=== PATIENT | male | born 1975 | race Caucasian/White ===

== ENCOUNTER 2017-05-23 08:51 | Emergency (ER) | payer OTHER, SELFPAY ==
[2017-05-23 08:53] VITALS: BP 142/106; PULSE 69; RESP 16; TEMP 37.1; O2SAT 97; BMI 28.0
--- NOTE | 2017-05-23 09:05 | CT_ITS ---
STUDY: CT FACIAL BONES WITH CONTRAST REASON FOR EXAM: Male, 41 years old. Left eye swelling RADIATION DOSAGE (If Supplied By Facility): CTDIvol = ( 29.38 ) mGy, DLP = ( 569.49 ) mGycm TECHNIQUE: The patient was scanned in a multi detector CT scanner. Transaxial imaging was performed following the intravenous administration of 100 ml of Isovue 300 contrast material. Sagittal and coronal images were reconstructed. Individualized dose optimization techniques were used for this CT. COMPARISON: Facial bone CT dated October 20, 2014 FINDINGS: There is mild soft tissue swelling around the left orbit and in the left facial region. Normal orbital walters and orbital contents. Normal nasal bones and anterior nasal spine. There is minimal cortical disruption in the anterior left maxilla adjacent to a tooth root. There is no demonstrated fracture. There is minimal mucosal thickening in both maxillary sinuses. CT/Sinus/Facial Bone WITH Contras IMPRESSION: There is soft tissue swelling around the left orbit and in the left facial region consistent with cellulitis. There is no loculated fluid collection to suggest an abscess. There is minimal cortical disruption in the anterior left maxilla adjacent to the root of tooth 11. There is adjacent soft tissue swelling but no discrete abscess. Electronically Signed: Ingris Hoskins MD at 10:02 EST Tel Direct: [phone], Service support ,
--- NOTE | 2017-05-23 09:11 | ED.DCSUM_ITS ---
- ER Visit Summary Date of Service: 05/23/17 Chief Complaint: Facial swelling History of Present Illness: The patient is a 41 M who states that last night his left maxillary region of his face began to swell and hurt. Is significantly worse this morning and now has faint erythema. He has a known focal decay in the left upper premolar and wonders if this is from that. He does not note any specific severe pain of the tooth. No reported fevers. Previous medical history includes an idiopathic cardiomyopathy with ejection fraction now about 55%. Physical Examination: Afebrile vital signs are stable Gen: Well-nourished well-developed Head: Normocephalic atraumatic Eyes: Perrl EOMI ENT: TMs clear no rhinorrhea moist mucous membranes left maxillary facial swelling with faint erythema. There is no trismus. There is no focal gum swelling. There is focal decay of a premolar. Neck: Supple no lymphadenopathy no JVD nontender CVS: Regular rate rhythm no murmurs normal S1-S2 Respiratory: No distress clear to auscultation bilaterally chest nontender Abdomen: Soft nontender nondistended normal bowel sounds no masses Back: Nontender Extremity: Nontender no edema Skin: Normal color no rash Neuro: alert orientated ?3 CN II-XII intact normal strength sensation reflexes gait cerebellar Psych: Normal affect normal mood Test Results: CT demonstrates focal dental caries with minimal cortical disruption as well as left facial cellulitis see radiology read for further details Emergency Department Course and Treatment: Received a dose of IV clindamycin. He will be discharged home with a prescription for clindamycin as well as a few Reddick. At this time I believe the facial cellulitis is most likely due to the dental caries. I have asked that he follow-up with dentistry as soon as possible return if worsening. Impression: 1. Dental caries 2. Left facial cellulitis This note was generated with [employer] dictation software. It may contain incorrect words, spelling, and punctuation that were not noted in review of the chart prior to signing ED Disposition - Plan for ED Patient: Disposition: Home or Assisted Living Chief Complaint: Dental Instructions: ED Cavity Dental, ED Cellulitis Facial Prescriptions: Hydrocodone Bitart/Apap 5-325 [[place]dick 5/325] 1 - 2 tab PO Q4H PRN PRN 3 Days #12 tab PRN Reason: Persistent Bp Elevations Clindamycin HCl [Cleocin] 300 mg PO Q6H #40 cap Referrals: Eddie Combs MD [Primary Care Provider] -
[2017-05-23 11:05] VITALS: BP 118/72; PULSE 58; RESP 18; O2SAT 98
== END 2017-05-23 11:06 | disposition home or self-care (01) ==
PROVIDERS: Emergency Provider Emergency Medicine; Family Provider Family Medicine; PCP Family Medicine
DX: L03.211 Cellulitis of face (principal); K02.9 Dental caries, unspecified; I10 Essential (primary) hypertension; I42.9 Cardiomyopathy, unspecified
CPT/HCPCS: 70487; 96365; 99283; J7050; Q9967; A4216

== ENCOUNTER 2017-10-20 14:54 | Emergency (ER) | payer OTHER, SELFPAY ==
[2017-10-20 14:55] VITALS: BP 147/88; PULSE 87; RESP 16; TEMP 37.1; O2SAT 98; BMI 27.8
--- NOTE | 2017-10-20 15:46 | ED.VISSUMM ---
- ER Visit Summary Date of Service: 10/20/17 Chief Complaint: [Injury right knee] History of Present Illness: The patient is a 41 M [presents the emergency department with complaint of injury to his right knee that occurred yesterday evening. Patient states that he tripped over a skid and his foot went in between the boards causing him to fall onto his hands and knees. Patient states that his right knee twisted. Patient having a hard time bearing weight at times and feels like the knee wants to go backwards. Patient has had prior surgical repair of this knee in 1996 where he believes he had a ACL reconstruction.] Physical Examination: [HEENT-PERRLA, EOMI. Cranial nerves II through XII grossly intact. TMs clear. Mucous membranes moist. No adenopathy. Cardiovascular-regular rate and rhythm without murmur or ectopy Lungs-clear to auscultation, chest wall stable without crepitus or subcu emphysema Abdomen-normoactive bowel sounds, soft, nontender, no rebound or rigidity, no peritoneal signs. Extremities-intact ?4, normal range of motion, normal pulses. Right knee-no effusion. No soft tissue swelling or ecchymosis noted. Patient has some pain at end of flexion of the knee. Anterior posterior drawer tests were negative. No laxity noted with varus and valgus stress. Patient has some mild diffuse tenderness about the medial lateral joint lines. Neurovascularly intact distally. Test Results: [X-rays of the right knee were obtained.] X-rays were read as postsurgical changes no fractures or anything acute. Emergency Department Course and Treatment: [Patient will be given crutches and knee immobilizer] Treatment Plan: [Patient given a prescription for [place] and referred to Dr. Anuj Gomez for follow-up] Disposition: [Discharged home in stable condition] Impression: [Right knee sprain-possible internal derangement] This note was generated with [employer] dictation software. It may contain incorrect words, spelling, and punctuation that were not noted in review of the chart prior to signing ED Disposition - Plan for ED Patient: Chief Complaint: Lower Extremity Injury Referrals: Eddie Combs MD [Primary Care Provider] -
--- NOTE | 2017-10-20 15:59 | RAD_ITS ---
STUDY: X-RAY - RIGHT KNEE REASON FOR EXAM: Right knee pain after a fall. TECHNIQUE: 4 view(s) of the knee. COMPARISON: None. FINDINGS: There are postoperative changes of the distal femur and proximal tibia from anterior cruciate ligament reconstruction. Normal proximal tibiofibular articulation. Normal medial femorotibial compartment. Normal lateral femorotibial compartment. Normal patellofemoral articulation. There is a small enthesophyte at the superior pole of the patella. RAD/Knee 4 or More Views IMPRESSION: Postoperative changes of the right knee without demonstrated fracture. Electronically Signed: Jasper Harrell MD at 16:22 EDT Tel , Service support ,
--- NOTE | 2017-10-20 16:49 | DCINST.ED_ITS ---
ED Disposition - Plan for ED Patient: Chief Complaint: Lower Extremity Injury Instructions: ED Meniscal Injury Knee Poss, ED Sprain Knee Prescriptions: Hydrocodone/Acetaminophen [[place] 5-325 Tablet] 1 - 2 ea PO 4X/DAY PRN PRN 5 Days #20 tab PRN Reason: Pain Referrals: Eddie Combs MD [Primary Care Provider] - Anuj Gomez DO [STAFF PHYSICIAN] - 3-5 Days
[2017-10-20 17:16] VITALS: PULSE 92; RESP 16; O2SAT 98
== END 2017-10-20 17:16 | disposition home or self-care (01) ==
PROVIDERS: Emergency Provider Emergency Medicine; Family Provider Family Medicine; PCP Family Medicine
DX: S83.90XA Sprain of unspecified site of unspecified knee, initial encounter (principal); W18.09XA Striking against other object with subsequent fall, initial encounter; Y93.9 Activity, unspecified; Y92.9 Unspecified place or not applicable; Y99.9 Unspecified external cause status; I42.9 Cardiomyopathy, unspecified; I48.91 Unspecified atrial fibrillation
CPT/HCPCS: 73564; 99284

== ENCOUNTER 2017-10-23 22:17 | Emergency (ER) | payer OTHER, SELFPAY ==
[2017-10-23 22:18] VITALS: BP 115/94; PULSE 160; PULSE 170; RESP 18; TEMP 36.7; O2SAT 96; O2SAT 98; BMI 28.9
--- NOTE | 2017-10-23 22:21 | EKG12_ITS ---
Test Reason : CP Blood Pressure : / mmHG Vent. Rate : 144 BPM Atrial Rate : 127 BPM P-R Int : 000 ms QRS Dur : 090 ms QT Int : 300 ms P-R-T Axes : 000 069 -39 degrees QTc Int : 464 ms Atrial fibrillation with premature ventricular or aberrantly conducted complexes ST & T wave abnormality, consider inferior ischemia Abnormal ECG Confirmed by MARCO COVARRUBIAS, KEVON ([id number]), tape editor PATI LEON ([id number]) on 10/28/2017 2:53:27 PM Referred By: KAMAR Confirmed By:KEVON LARA MD
--- NOTE | 2017-10-23 22:21 | RAD_ITS ---
STUDY: X-RAY CHEST REASON FOR EXAM: Male, 41 years old. Chest pain. TECHNIQUE: Single AP portable upright view of the chest. COMPARISON: PA and lateral chest x-ray January 31, 2017. FINDINGS: The lungs are under expanded, and there is mild basilar hypoventilation. There is no demonstrated pleural abnormality. Normal size heart. Normal mediastinum and jr. Normal visualized pulmonary arteries. Normal visualized aortic arch and descending thoracic aorta. Normal visualized thoracic spine. Normal visualized ribs, clavicles, and shoulders. There is no demonstrated abnormality of the visualized soft tissue structures of the upper abdomen. RAD/Chest 1 View (Portable) IMPRESSION: Poor inspiratory effort. No acute cardiopulmonary disease. Electronically Signed: Bijan Winkler MD at 22:35 EDT , Service support ,
--- NOTE | 2017-10-23 22:23 | ED.DCSUM_ITS ---
- ER Visit Summary Date of Service: 10/23/17 Chief Complaint: Elevated heart rate, left scapular pain History of Present Illness: The patient is a 41 M who presents with left scapular pain and elevated heart rate. Started today. He describes sharp pain in his left scapular area that radiated to the left arm. His who is a nurse checked his heart rate and it was above 120. Patient has a history of A. fib with RVR. He takes metoprolol 50 mg daily and lisinopril 5 mg daily. He does have shortness of breath with this. He has a history of idiopathic cardiomyopathy. His latest ejection fraction was about 50%. 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 Heart rate between 160 and 180. HEENT exam unremarkable. Heart is irregularly irregular and tachycardic. Lungs are clear to auscultation bilaterally. Abdomen soft and nontender. He has peripheral pulses that are equal. His neurologic exam is normal. Test Results: EKG A. fib with a rate of 144. Labs are unremarkable except for hemoglobin of 18 Emergency Department Course and Treatment: Patient was given a dose of Cardizem and his heart rate came down between 90 and 100. He did bump up to 120. I discussed this with Dr. Jarvis, promotional marketing agent for Dr. Leahy. He states the patient could either be discharged with Eliquis and metoprolol or the patient could be admitted. The patient will want to go home. I will start him on Eliquis 5 mg twice a day. I will also give him metoprolol 50 mg twice daily. I will give him a 25 mg dose here tonight per Dr. Jarvis. Patient will be discharged to follow-up with Dr. Leahy tomorrow Treatment Plan: [] Disposition: Discharge Impression: A. fib with RVR This note was generated with [employer] software. It may contain incorrect words, spelling, and punctuation that were not noted in review of the chart prior to signing ED Disposition - Plan for ED Patient: Chief Complaint: Chest Pain Referrals: Eddie Combs MD [Primary Care Provider] -
[2017-10-23] MEDS: dilTIAZem 25 MG/5 ML Vial IV BOLUS (22:27)
[2017-10-23] MEDS: Aspirin 81 MG TAB.CHEW 324 MG PO (22:27)
[2017-10-23 22:33] LABS: Absolute Lymphocyte Count 2.14 X10^3/ul (0.83-4.51); Absolute Neutrophil Count 7.6 X10^3/uL (2.0-7.7); Basophil# 0.01 X10^3/uL; Basophil% 0.1 % (0-1); Eosinophil# 0.04 X10^3/uL; Eosinophils% 0.4 % (0-5); Hematocrit 52.2 % (40-54); Lymphocyte # 2.14 X10^3/ul (4.0); Lymphocyte % 20.4 % (19-41); Mean Corp Hgb Conc 34.5 g/gl (32-36); Mean Corpuscular Hgb 30.6 pg (27.0-32.0); Mean Corpuscular Volume 88.8 fL (80-94); Monocyte% 6.7 % (0-10); Neutrophil # 7.58 X10^3/uL (2.7-7.7); Neutrophil % 72.3 % (47-70); Platelet Count 226 K/mm3 (150-450); RBC Distribution Width CV 13.8 % (11.6-14.6); RBC Distribution Width SD 44.9 fl (35.1-43.9); Red Blood Count 5.88 M/mm3 (4.6-6.2); White Blood Count 10.5 K/mm3 (4.4-11.0)
[2017-10-23 22:34] LABS: POSITIVE COUNT NO; POSITIVE DIFFERENTIAL NO; POSITIVE MORPHOLOGY NO
--- NOTE | 2017-10-23 22:34 | ED.RN ---
lab called with critical lab results. hgb 18.0. Dr. Zhang made aware. no new orders at this time
[2017-10-23 22:57] LABS: Anion Gap 8 (5-15); BUN 12 mg/dL (7-18); BUN/Creat Ratio 10.1 RATIO (10-20); Calcium,Total 8.8 mg/dL (8.5-10.1); Chloride 106 mmol/L (98-107); Creatinine, Serum 1.19 mg/dL (0.70-1.30); EST Glomerular Filtration Rate 71 mL/min (>60); Est Glom Filt Rate - Afr Amer 86 mL/min (>60); Estimated Creatinine Clearance 80.04 ml/min; Glucose 132 mg/dL (74-106); Sodium Level 140 mmol/L (136-145)
--- NOTE | 2017-10-23 23:13 | ED.DEP ---
ED Disposition - Plan for ED Patient: Disposition: Home or Assisted Living Chief Complaint: Chest Pain Diagnosis: Atrial fibrillation with RVR Instructions: ED Afib Prescriptions: Apixaban [Eliquis] 5 mg PO BID #60 tab Metoprolol Tartrate [Lopressor (beta misty)] 50 mg PO BID #60 tab Referrals: Eddie Combs MD [Primary Care Provider] - Additional Instructions: Your prescriptions were electronically transferred to [facility]
[2017-10-23] MEDS: Metoprolol Tartrate 5 MG/5 ML Vial IV (23:37)
[2017-10-23] MEDS: APIXABAN 5 MG TABLET PO (23:41)
[2017-10-23] MEDS: Metoprolol Tartrate 25 MG Tablet PO (23:41)
[2017-10-23 23:46] VITALS: BP 107/53; PULSE 83; RESP 28; O2SAT 97
== END 2017-10-23 23:57 | disposition home or self-care (01) ==
PROVIDERS: Emergency Provider Emergency Medicine; Family Provider Family Medicine; PCP Family Medicine
DX: I48.91 Unspecified atrial fibrillation (principal); M25.512 Pain in left shoulder; I42.9 Cardiomyopathy, unspecified; Z79.01 Long term (current) use of anticoagulants; Z79.899 Other long term (current) drug therapy
CPT/HCPCS: 71045; 80048; 84484; 85025; 93005; 96374; 96375; 99285; J7030

== ENCOUNTER 2017-10-24 12:37 | Inpatient (IN) | payer OTHER, SELFPAY ==
[2017-10-24] VITALS (21 sets, daily range): BP systolic 97–140; BP diastolic 65–89; PULSE 62–160; RESP 14–24; TEMP 36.6–36.8; O2SAT 92–96; BMI 28.8; BMI 27.7
--- NOTE | 2017-10-24 12:50 | RAD_ITS ---
STUDY: X-RAY CHEST REASON FOR EXAM: Male, 41 years old. Chest pain, arrhythmia. TECHNIQUE: Single AP portable upright view of the chest. COMPARISON: Portable AP upright chest x-ray October 23, 2017. FINDINGS: The lungs are clear, but under expanded with minor basilar crowding. There is no demonstrated pleural abnormality. Normal size heart. Normal mediastinum and jr. Normal visualized pulmonary arteries. There is stable minor atherosclerotic calcification of the aortic arch. Normal visualized thoracic spine. Normal visualized ribs, clavicles, and shoulders. There is no demonstrated abnormality of the visualized soft tissue structures of the upper abdomen. RAD/Chest 1 View (Portable) IMPRESSION: No acute cardiopulmonary disease. Electronically Signed: Bijan Winkler MD at 13:13 EDT , Service support ,
--- NOTE | 2017-10-24 12:50 | ED.VISSUMM ---
- ER Visit Summary Date of Service: 10/24/17 Chief Complaint: [Palpitations] History of Present Illness: The patient is a 41 M [who presents the emergency department with palpitations. It started last night. He was seen in the emergency department and diagnosed with A. fib he had a RVR at that time it was moderately controlled with a dose of Cardizem. Cardiology was consulted by phone and he was sent home on metoprolol and Eliquis. He followed up with cardiology today and was back in RVR with a heart rate of 160.] Physical Examination: [] WN WD NAD PERRL EOMI MMM NECK supple and nontender, no masses Irregularly irregular tachycardic no murmur rub or gallop, no peripheral edema, symmetric radial pulses CTAB no respiratory distress ABDOMEN is soft and nontender, normal bowel sounds, no distension, no rebound or guarding SKIN is warm and dry no rashes Alert and Oriented x3, CN II-XII in tact, no motor or sensory deficits, gait normal No lymphadenopathy Test Results: [] Emergency Department Course and Treatment: [Atrial fibrillation at a rate of 151, he was given 500 cc of fluid and 10 mg of Cardizem IV and rate was controlled to 9200. He was was placed on Cardizem drip at 5 mg/h. Rate was controlled he had no evidence of fluid overload troponin was normal TSH was normal. I spoke with Dr. Roberts as well as Dr. Álvarez 3 as this is a recurrent visit within 24 hours he will be admitted to the hospital. He was placed on Eliquis.] Treatment Plan: [] Disposition: [Admit] Impression: [A. fib with RVR] This note was generated with [employer] dictation software. It may contain incorrect words, spelling, and punctuation that were not noted in review of the chart prior to signing ED Disposition - Plan for ED Patient: Chief Complaint: Palpitations Referrals: Eddie Combs MD [Primary Care Provider] -
--- NOTE | 2017-10-24 12:56 | ED.DCSUM_ITS ---
- ER Visit Summary Date of Service: 10/24/17 Chief Complaint: [Palpitations] History of Present Illness: The patient is a 41 M [who presents the emergency department with palpitations. It started last night. He was seen in the emergency department and diagnosed with A. fib he had a RVR at that time it was moderately controlled with a dose of Cardizem. Cardiology was consulted by phone and he was sent home on metoprolol and Eliquis. He followed up with cardiology today and was back in RVR with a heart rate of 160.] Physical Examination: [] WN WD NAD PERRL EOMI MMM NECK supple and nontender, no masses Irregularly irregular tachycardic no murmur rub or gallop, no peripheral edema, symmetric radial pulses CTAB no respiratory distress ABDOMEN is soft and nontender, normal bowel sounds, no distension, no rebound or guarding SKIN is warm and dry no rashes Alert and Oriented x3, CN II-XII in tact, no motor or sensory deficits, gait normal No lymphadenopathy Test Results: [] Emergency Department Course and Treatment: [Atrial fibrillation at a rate of 151 , he was given 500 cc of fluid and 10 mg of Cardizem IV and rate was controlled to 9200. He was was placed on Cardizem drip at 5 mg/h. Rate was controlled he had no evidence of fluid overload troponin was normal TSH was normal. I spoke with Dr. Roberts as well as Dr. Álvarez 3 as this is a recurrent visit within 24 hours he will be admitted to the hospital. He was placed on Eliquis.] Treatment Plan: [] Disposition: [Admit] Impression: [A. fib with RVR] This note was generated with [employer] dictation software. It may contain incorrect words, spelling, and punctuation that were not noted in review of the chart prior to signing ED Disposition - Plan for ED Patient: Chief Complaint: Palpitations Referrals: Eddie Combs MD [Primary Care Provider] -
[2017-10-24] MEDS: dilTIAZem 25 MG/5 ML Vial 10 MG IV BOLUS (13:06)
[2017-10-24] MEDS: Aspirin 81 MG TAB.CHEW 324 MG PO (13:06)
[2017-10-24] MEDS: 0.9% Normal Saline 1,000 ML 250 ML IV (13:06)
[2017-10-24 13:17] LABS: Absolute Lymphocyte Count 2.11 X10^3/ul (0.83-4.51); Absolute Neutrophil Count 5.9 X10^3/uL (2.0-7.7); Basophil# 0.02 X10^3/uL; Basophil% 0.2 % (0-1); Eosinophil# 0.04 X10^3/uL; Eosinophils% 0.5 % (0-5); Hematocrit 49.4 % (40-54); Hemoglobin 16.6 g/dl (13.0-16.5); Lymphocyte # 2.11 X10^3/ul (4.0); Lymphocyte % 23.8 % (19-41); Mean Corp Hgb Conc 33.6 g/gl (32-36); Mean Corpuscular Hgb 30.1 pg (27.0-32.0); Mean Corpuscular Volume 89.5 fL (80-94); Mean Platelet Vol. 10.1 fl (6.2-12.0); Monocyte# 0.76 X10^3/uL; Monocyte% 8.6 % (0-10); Neutrophil # 5.93 X10^3/uL (2.7-7.7); Neutrophil % 66.8 % (47-70); POSITIVE COUNT NO; POSITIVE DIFFERENTIAL NO; POSITIVE MORPHOLOGY NO; Platelet Count 222 K/mm3 (150-450); RBC Distribution Width SD 45.5 fl (35.1-43.9); Red Blood Count 5.52 M/mm3 (4.6-6.2); White Blood Count 8.9 K/mm3 (4.4-11.0)
[2017-10-24 13:39] LABS: Anion Gap 5 (5-15); BUN 10 mg/dL (7-18); BUN/Creat Ratio 10.3 RATIO (10-20); Chloride 111 mmol/L (98-107); Creatinine, Serum 0.98 mg/dL (0.70-1.30); EST Glomerular Filtration Rate 89 mL/min (>60); Est Glom Filt Rate - Afr Amer 108 mL/min (>60); Estimated Creatinine Clearance 97.19 ml/min; Glucose 72 mg/dL (74-106); Potassium 3.9 mmol/L (3.5-5.1); Sodium Level 143 mmol/L (136-145); Thyroid Stim Hormone (TSH) 2.14 uIU/mL (0.358-3.74)
--- NOTE | 2017-10-24 14:06 | NURSING ---
DR LARA PAGED
--- NOTE | 2017-10-24 14:37 | NURSING ---
DR LARA PAGED
[2017-10-24] MEDS: APIXABAN 5 MG TABLET PO (14:47)
--- NOTE | 2017-10-24 15:27 | PCM.HP.STD ---
Problem List (1) Atrial fibrillation with RVR Status: Chronic History of Present Illness Date of Admission: 10/24/17 Chief Complaint: palpitations The patient is a 41 year old M who has been experiencing palpitations since . Patient also had associated diaphoresis and nausea with this. Patient presented to the emergency room and was found for ablation with RVR. Dr. Roberts, cardiology, was contacted and advised Eliquis and diltiazem. Patient being admitted for further rhythm control. Patient had similar symptoms when he has been in the past. [] Past Medical History Past Medical History (Chronic Problems): Chronic Problems (Last Reviewed 03/05/17 @ 16:35 by Joe Leahy MD) Paroxysmal atrial fibrillation (Chronic) Atrial fibrillation with RVR (Chronic) Cardiomyopathy (Chronic) Medical History: Medical History (Last Reviewed 10/24/17 @ 15:28 by Yasir Álvarez DO) Paroxysmal atrial fibrillation (Chronic) I48.0 Cardiomyopathy (Chronic) I42.9 Gall stones K80.20 Pulmonary embolism I26.99 Allergies No Known Allergies Allergy (Verified 10/20/17 14:55) Home Medications: Ambulatory Orders Medication Instructions Recorded lisinopril 5 mg tablet 5 mg PO DAILY #90 tab 03/05/17 Apixaban [Eliquis] 5 mg PO BID #60 tab 10/23/17 Hydrocodone/Acetaminophen 1 tab PO 4X/DAY PRN PRN 10/24/17 [Hydrocodon-Acetaminophen 5-325] Metoprolol Succinate 50 mg PO DAILY 10/24/17 Surgical History: Surgical History (Last Reviewed 10/24/17 @ 15:28 by Yasir Álvarez DO) Previous back surgery Z98.890 Surgical History: no surgical history Smoking Status: Never smoker Tobacco Use: Non-smoker Alcohol: None Drugs: None - *Family History Paternal Family History: Family History (Last Reviewed 10/24/17 @ 15:29 by Yasir Álvarez DO) Mother Heart disease History Items: - Review of Systems Constitutional: Reports: - - Diaphoresis. Denies: Chills, Fever, Weight Change Eyes: Denies: Blurred vision, Double vision HEENT: Denies: Head Aches, Sinus Congestion, Sinus Drainage Cardiovascular: Reports: - - Did have left scapular pain. Denies: Chest Pain, Edema Respiratory: Denies: Cough, Shortness of breath at rest, Sputum production Gastrointestinal: Denies: Abdominal Pain, Nausea, Vomiting Genitourinary: Denies: Dysuria Musculoskeletal: Reports: Joint Pain, Joint Tenderness, - - Right knee pain after sliding on a skid. Currently wearing a brace on his right knee. Skin: Denies: Dryness, Jaundice Neurological: Denies: Numbness, Tingling, Focal weakness Psychiatric: Denies: Anxiety, Depression Hematologic/ Lymphatic: Denies: Easy Bruising, Easy Bleeding, Hx of blood clot Comment: All review of systems are negative except as mentioned in the history of present illness and the other review of systems. VTE Information - Inpt Only VTE Present on Admission: No VTE Pharm Prophylaxis ordered?: Yes - Physical Exam General: Alert, Cooperative, No apparent distress HEENT: Atraumatic, Normocephalic Oral: Moist Mucosa, No Gingival or Mucosal Lesions/ Ulcerations Neck: No Nodes, Thyroid Normal Size and Texture Lungs: Clear to auscultation, Normal air movement, No rhonchi, No wheeze Cardiovascular: Normal S1, Normal S2, No murmurs, Irregular Rate, Tachycardic Abdomen: Bowel Sounds Present, Soft, Non Tender, Non-Distended Extremities: No edema, No Calf Tenderness, - - Right knee with an immobilizer Skin: No rashes, No breakdown Psych/Mental Status: Normal Affect, Appropriate Vital Signs Temp Pulse Resp BP Pulse Ox 36.6 C 99 19 H 127/89 H 95 10/24/17 12:38 10/24/17 15:03 10/24/17 15:03 10/24/17 15:03 10/24/17 15:03 Oxygen Flow Rate (L/min) 2 Oxygen Delivery Method Nasal Cannula Weight: 88.5 kg Body Mass Index (BMI) 28.8 Laboratory Tests Past 24 Hrs 10/24/17 10/24/17 13:00 13:00 WBC 8.9 RBC 5.52 Hgb 16.6 H Hct 49.4 MCV 89.5 MCH 30.1 MCHC 33.6 RDW 14.0 RDW Differential 45.5 H Plt Count 222 MPV 10.1 Immature Gran % (Auto) 0.100 Neut % (Auto) 66.8 Lymph % (Auto) 23.8 Saunders % (Auto) 8.6 Eos % (Auto) 0.5 Baso % (Auto) 0.2 Absolute Neuts (auto) 5.9 Absolute Lymphs (auto) 2.11 Total Counted Not Reportable Sodium 143 Potassium 3.9 Chloride 111 H Carbon Dioxide 27.0 Anion Gap 5 BUN 10 Creatinine 0.98 Estim Creat Clear Calc 97.19 Est GFR (MDRD) Af Amer 108 Est GFR (MDRD) Non-Af 89 BUN/Creatinine Ratio 10.3 Glucose 72 L Calcium 9.0 Troponin I < 0.015 TSH 2.14 Assessment/Plan All Active Problems (Last Reviewed 03/05/17 @ 16:35 by Joe Leahy MD) Hypokalemia (Acute) Chest pain (Acute) 1. Atrial fibrillation with RVR Patient on diltiazem drip and will continue Patient started on Eliquis and will continue Consult cardiology Cycle troponins 2. Cardiomyopathy Idiopathic per history Follow-up with cardiology as outpatient 3. DVT prophylaxis: Patient anticoagulated on Eliquis Code Visit Inpatient E&M: 41598 Init Hosp L2
--- NOTE | 2017-10-24 15:31 | HP.PCM_ITS ---
Problem List (1) Atrial fibrillation with RVR Status: Chronic History of Present Illness Date of Admission: 10/24/17 Chief Complaint: palpitations The patient is a 41 year old M who has been experiencing palpitations since . Patient also had associated diaphoresis and nausea with this. Patient presented to the emergency room and was found for ablation with RVR. Dr. Roberts, cardiology, was contacted and advised Eliquis and diltiazem. Patient being admitted for further rhythm control. Patient had similar symptoms when he has been in the past. [] Past Medical History Past Medical History (Chronic Problems): Chronic Problems (Last Reviewed 03/05/17 @ 16:35 by Joe Leahy MD) Paroxysmal atrial fibrillation (Chronic) Atrial fibrillation with RVR (Chronic) Cardiomyopathy (Chronic) Medical History: Medical History (Last Reviewed 10/24/17 @ 15:28 by Yasir Álvarez DO) Paroxysmal atrial fibrillation (Chronic) I48.0 Cardiomyopathy (Chronic) I42.9 Gall stones K80.20 Pulmonary embolism I26.99 Allergies No Known Allergies Allergy (Verified 10/20/17 14:55) Home Medications: Ambulatory Orders Medication Instructions Recorded lisinopril 5 mg tablet 5 mg PO DAILY #90 tab 03/05/17 Apixaban [Eliquis] 5 mg PO BID #60 tab 10/23/17 Hydrocodone/Acetaminophen 1 tab PO 4X/DAY PRN PRN 10/24/17 [Hydrocodon-Acetaminophen 5-325] Metoprolol Succinate 50 mg PO DAILY 10/24/17 Surgical History: Surgical History (Last Reviewed 10/24/17 @ 15:28 by Yasir Álvarez DO) Previous back surgery Z98.890 Surgical History: no surgical history Smoking Status: Never smoker Tobacco Use: Non-smoker Alcohol: None Drugs: None - *Family History Paternal Family History: Family History (Last Reviewed 10/24/17 @ 15:29 by Yasir Álvarez DO) Mother Heart disease History Items: - Review of Systems Constitutional: Reports: - - Diaphoresis. Denies: Chills, Fever, Weight Change Eyes: Denies: Blurred vision, Double vision HEENT: Denies: Head Aches, Sinus Congestion, Sinus Drainage Cardiovascular: Reports: - - Did have left scapular pain. Denies: Chest Pain, Edema Respiratory: Denies: Cough, Shortness of breath at rest, Sputum production Gastrointestinal: Denies: Abdominal Pain, Nausea, Vomiting Genitourinary: Denies: Dysuria Musculoskeletal: Reports: Joint Pain, Joint Tenderness, - - Right knee pain after sliding on a skid. Currently wearing a brace on his right knee. Skin: Denies: Dryness, Jaundice Neurological: Denies: Numbness, Tingling, Focal weakness Psychiatric: Denies: Anxiety, Depression Hematologic/ Lymphatic: Denies: Easy Bruising, Easy Bleeding, Hx of blood clot Comment: All review of systems are negative except as mentioned in the history of present illness and the other review of systems. VTE Information - Inpt Only VTE Present on Admission: No VTE Pharm Prophylaxis ordered?: Yes - Physical Exam General: Alert, Cooperative, No apparent distress HEENT: Atraumatic, Normocephalic Oral: Moist Mucosa, No Gingival or Mucosal Lesions/ Ulcerations Neck: No Nodes, Thyroid Normal Size and Texture Lungs: Clear to auscultation, Normal air movement, No rhonchi, No wheeze Cardiovascular: Normal S1, Normal S2, No murmurs, Irregular Rate, Tachycardic Abdomen: Bowel Sounds Present, Soft, Non Tender, Non-Distended Extremities: No edema, No Calf Tenderness, - - Right knee with an immobilizer Skin: No rashes, No breakdown Psych/Mental Status: Normal Affect, Appropriate Vital Signs Temp Pulse Resp BP Pulse Ox 36.6 C 99 19 H 127/89 H 95 10/24/17 12:38 10/24/17 15:03 10/24/17 15:03 10/24/17 15:03 10/24/17 15:03 Oxygen Flow Rate (L/min) 2 Oxygen Delivery Method Nasal Cannula Weight: 88.5 kg Body Mass Index (BMI) 28.8 Laboratory Tests Past 24 Hrs 10/24/17 10/24/17 13:00 13:00 WBC 8.9 RBC 5.52 Hgb 16.6 H Hct 49.4 MCV 89.5 MCH 30.1 MCHC 33.6 RDW 14.0 RDW Differential 45.5 H Plt Count 222 MPV 10.1 Immature Gran % (Auto) 0.100 Neut % (Auto) 66.8 Lymph % (Auto) 23.8 Maries % (Auto) 8.6 Eos % (Auto) 0.5 Baso % (Auto) 0.2 Absolute Neuts (auto) 5.9 Absolute Lymphs (auto) 2.11 Total Counted Not Reportable Sodium 143 Potassium 3.9 Chloride 111 H Carbon Dioxide 27.0 Anion Gap 5 BUN 10 Creatinine 0.98 Estim Creat Clear Calc 97.19 Est GFR (MDRD) Af Amer 108 Est GFR (MDRD) Non-Af 89 BUN/Creatinine Ratio 10.3 Glucose 72 L Calcium 9.0 Troponin I < 0.015 TSH 2.14 Assessment/Plan All Active Problems (Last Reviewed 03/05/17 @ 16:35 by Joe Leahy MD) Hypokalemia (Acute) Chest pain (Acute) 1. Atrial fibrillation with RVR * Patient on diltiazem drip and will continue * Patient started on Eliquis and will continue * Consult cardiology * Cycle troponins 2. Cardiomyopathy * Idiopathic per history * Follow-up with cardiology as outpatient 3. DVT prophylaxis: Patient anticoagulated on Eliquis Code Visit Inpatient E&M: 92825 Init Hosp L2
--- NOTE | 2017-10-24 15:31 | NURSING ---
118 AFIB RVR SUMMER
--- NOTE | 2017-10-24 15:54 | ECHOD_ITS ---
Reason For Study: Afib Procedure This was a 2D Doppler, Color Flow transthoracic echocardiogram. The exam was of fair technical quality due to diminished acoustic windows. The study was technically difficult. Exam performed portable in patient room. Left Ventricle Normal LV size. Left ventricular systolic function is lower limits of normal. The estimated ejection fraction is 50 %. Diastolic function: considered indeterminate. No regional wall motion abnormalities noted. Right Ventricle Normal RV size. Normal systolic function. Atria Borderline to mildly enlarged left atrium. Normal right atrium. No doppler evidence for ASD. Mitral Valve There is no mitral annular calcification. Normal mitral valve. Trivial mitral valve insufficiency. Tricuspid Valve Normal tricuspid valve. Trivial tricuspid valve insufficiency. Unable to estimate RV systolic pressure/pulmonary artery pressure due to technically difficult study. Aortic Valve Trisinus/trileaflet aortic valve. Normal aortic valve. Pulmonic Valve The pulmonic valve is not well visualized. Trivial pulmonic valve insufficiency. Great Vessels Normal sized aortic root. Pericardium/Pleural No pericardial effusion. MMode/2D Measurements & Calculations LVIDd: 5.0 cm IVSd: 0.87 cm Ao root diam: 3.7 cm LVIDs: 3.6 cm LVPWd: 1.2 cm LA dimension: 3.0 cm FS: 28.0 % LAV(MOD-bp): 52.1 ml LVAd ap4: 29.1 cm2 SV(MOD-sp4): 45.5 ml LAV(MOD-bp) Indexed: 25.9 ml/m2 EDV(MOD-sp4): 87.1 ml LAV(MOD-sp2): 53.3 ml EDV(sp4-el): 88.4 ml LAV(MOD-sp4): 46.5 ml LVAs ap4: 18.1 cm2 ESV(MOD-sp4): 41.6 ml ESV(sp4-el): 40.9 ml EF(MOD-sp4): 52.3 % EF(sp4-el): 53.8 % SV(sp4-el): 47.5 ml LA A4 area: 19.0 cm2 RA A4 area: 18.8 cm2 Time Measurements MV dec time: 0.25 sec Doppler Measurements & Calculations MV E max calos: 67.1 cm/sec Lat Peak E' Calos: 9.3 cm/sec Med Peak E' Calos: 10.2 cm/sec MV A max calos: 53.7 cm/sec E/E' lat: 7.2 E/E' med: 6.6 MV E/A: 1.3 MV V2 max: 71.2 cm/sec MV P1/2t max calos: 70.6 cm/sec Ao V2 max: 91.0 cm/sec MV max P.0 mmHg MV P1/2t: 120.8 msec Ao max P.3 mmHg MV V2 mean: 38.9 cm/sec MV dec slope: 171.2 cm/sec2 Ao V2 mean: 63.8 cm/sec MV mean P.70 mmHg MVA(P1/2t): 1.8 cm2 Ao mean P.8 mmHg MV V2 VTI: 26.9 cm Ao V2 VTI: 20.8 cm LV V1 max: 82.5 cm/sec PA V2 max: 81.9 cm/sec LV V1 max P.7 mmHg LV V1 mean P.4 mmHg LV V1 mean: 55.4 cm/sec LV V1 VTI: 17.7 cm Interpretation Summary The study was technically difficult. Left ventricular systolic function is lower limits of normal. The estimated ejection fraction is 50 %. Borderline to mildly enlarged left atrium. Trivial mitral valve insufficiency. Trivial tricuspid valve insufficiency. Trivial pulmonic valve insufficiency. Unable to estimate RV systolic pressure/pulmonary artery pressure due to technically difficult study. Diastolic function: considered indeterminate. Ordering Physician: Yasir Álvarez Referring Physician: Eddie Combs Performed By: Alex Aguilar RCS
--- NOTE | 2017-10-24 18:16 | EKG12_ITS ---
Test Reason : 1 HR AFT TIKOSIN Blood Pressure : / mmHG Vent. Rate : 057 BPM Atrial Rate : 057 BPM P-R Int : 130 ms QRS Dur : 100 ms QT Int : 498 ms P-R-T Axes : 033 066 269 degrees QTc Int : [address] & T wave abnormality, consider anterolateral ischemia Prolonged QT Abnormal ECG Confirmed by MARCO COVARRUBIAS, KEVON ([id number]), senior technical editor PATI LEON ([id number]) on 10/31/2017 8:26:08 AM Referred By: DR LARA Confirmed By:KEVON LARA MD
[2017-10-24] MEDS: 0.9% NaCl Peripheral Flush Adult/Peds IV (19:58)
[2017-10-24] MEDS: HYDROcodone Bitartrate/Apap 5/325 Tablet PO (20:03)
--- NOTE | 2017-10-24 20:13 | CON.PCM_ITS ---
Problem List (1) Paroxysmal atrial fibrillation Status: Chronic (2) Cardiomyopathy Status: Chronic Qualifiers: Cardiomyopathy type: dilated Qualified Code(s): I42.0 - Dilated cardiomyopathy; I42.0 - Dilated cardiomyopathy; I42.0 - Dilated cardiomyopathy; I42.0 - Dilated cardiomyopathy (3) Chest pain Status: Acute Qualifiers: Chest pain type: unspecified Qualified Code(s): R07.9 - Chest pain, unspecified Reason for Consult Date of Consultation: 10/24/17 History of Present Illness: The patient is a 41 year old white male with a past medical history of paroxysmal atrial fibrillation with RVR, non-CAD related cardiomyopathy, and chest pain who presents for evaluation of recurrent symptoms and objective findings of recurrent atrial fibrillation with rapid ventricular response. The patient has been previously been patient and an inpatient for his aforementioned concerns. He has undergone noninvasive evaluation in the past. He states he had been doing reasonably well on his medications with respect to his beta-misty and his ADRIAN inhibitor until just recently. He notes [place] , [place], he did not feel well. He noted a change that he believed was similar to bit more prominent with respect to his atrial dysrhythmia. He also had a variety of back and shoulder discomfort during that time. He was described by his spouse is appearing pale and diaphoretic. He does not recall a significant change in his respiratory status. He did not lose consciousness. He was evaluated at the [facility] emergency department and noted to be in atrial fibrillation with rapid ventricular response. He underwent noninvasive evaluation which was considered negative at the time for any acute cardiovascular condition other than his atrial fibrillation. He was treated with additional rate limiting medication and placed on anticoagulant therapy. He was released home with outpatient follow-up instructions. He presented to the [facility] office this day with concerns of ongoing rapid heart rate and still appearing somewhat pale and on further noninvasive evaluation was reported as being somewhat hypotensive and still in, per ECG, atrial fibrillation with rapid ventricular response with nonspecific ST and T-wave abnormality. He was returned to the emergency department for reevaluation. He was subsequently placed in the PCU for ongoing evaluation and care. This included continued monitoring, cardiac enzymes which have been negative, ECG which demonstrated his atrial fibrillation with rapid ventricular response, and medical therapy with IV diltiazem. He has subsequently been noted to have recent spontaneous conversion to sinus rhythm. He states he feels better overall. His ECG demonstrated sinus rhythm with ST and T-wave changes potentially compatible with myocardial ischemia in the anterolateral distribution. In comparison to a previous ECG from 01/31/2017 he is noted to have somewhat similar ST and T-wave changes. He has denied any other symptoms such as orthopnea, PND, or peripheral pitting edema. There has been no near syncope or syncope. He has remained active. He states separate from these events he has been feeling well with no other acute symptoms. Past Medical History Allergies/Adverse Reactions: Allergies No Known Allergies Allergy (Verified 10/20/17 14:55) Home Medications: Ambulatory Orders Medication Instructions Recorded lisinopril 5 mg tablet 5 mg PO DAILY #90 tab 03/05/17 Apixaban [Eliquis] 5 mg PO BID #60 tab 10/23/17 Hydrocodone/Acetaminophen 1 tab PO 4X/DAY PRN PRN 10/24/17 [Hydrocodon-Acetaminophen 5-325] Metoprolol Succinate 50 mg PO DAILY 10/24/17 Past Medical History (Chronic Problems): Chronic Problems (Last Reviewed 10/24/17 @ 15:28 by Yasir Álvarez DO) Paroxysmal atrial fibrillation (Chronic) Atrial fibrillation with RVR (Chronic) Cardiomyopathy (Chronic) Surgical History: no surgical history - *Family History Paternal Family History: Family History (Last Reviewed 10/24/17 @ 15:29 by Yasir Álvarez DO) Mother Heart disease History Items: - Lives: Spouse/ Significant Other Smoking Status: Never smoker Tobacco Use: Non-smoker Alcohol: None Drugs: None Review of Systems - Review of Systems General: Denies: Fever, Night Sweats, Fatigue Cardiovascular: Reports: Chest Discomfort, Palpitations, - - Diaphoresis. Denies: Shortness of Breath, Orthopnea, PND, Peripheral Edema, Lightheadedness, Dizziness, Near Syncope, Syncope Respiratory: Denies: Cough, Sputum Production, Hemoptysis Gastrointestinal: Denies: Hematemesis, Hematochezia, Melena Genitourinary: Denies: Dysuria, Hematuria Skin: Denies: Rash Subjectve: This is a 41-year-old white male who appears to be resting comfortably at the moment in no acute distress. Objective: Vital Signs Temp Pulse Resp BP Pulse Ox 98.1 F 76 19 H 108/65 95 10/24/17 19:00 10/24/17 19:00 10/24/17 19:00 10/24/17 19:00 10/24/17 19:00 Oxygen Flow Rate (L/min) 2 Oxygen Delivery Method Room Air Weight: 188 lb Body Mass Index (BMI) 27.7 Intake and Output for Last 24 Hours 10/22/17 10/23/17 10/24/17 23:59 23:59 23:59 Intake Total 255 / 255 Balance 255 / 255 General: Healthy Appearing, Awake, Alert, Oriented x 3, Cooperative, No Acute Distress HEENT: Atraumatic, Normocephalic, PERRL, EOMI, Sclera Non Icteric Oral: Moist Mucosa Neck: Supple, Good ROM, No JVD Lungs: Clear to auscultation Cardiovascular: Regular Rhythm, Normal S1, Normal S2 Vascular: No Carotid Bruits Abdomen: Bowel Sounds Present, Soft, Non Tender Extremities: No Cyanosis, No Clubbing, No edema Neurological: No Focal Motor or Sensory Deficit Psych/Mental Status: Appropriate, Normal Affect 10/24/17 16:28: Troponin I < 0.015 Rhythm: Sinus rhythm EKG: As noted above ECHO: 02/01/2017: Left ventricle with mild global left ventricular systolic dysfunction with an estimated LVEF of 50%; mild MR; trivial TR; trivial CO Stress Test: 06/17/2016: Stress nuclear imaging study: Waldo protocol: 12 minutes achieving 89% predicted maximal heart rate with no obvious elective cardiographic changes, no obvious atrial dysrhythmias, and nuclear images demonstrating no evidence of stress-induced myocardial ischemia Event monitor from 02/03/2017: Reported sinus rhythm with no atrial fibrillation reported and no pauses reported CXR: Preliminary evaluation: No acute cardiopulmonary disease process appreciated: Please see official report Assessment/Plan 1. Paroxysmal atrial fibrillation with rapid ventricular response The patient presents with recurrent atrial fibrillation with rapid ventricular response. He has been symptomatic with this. His symptoms may be related to his atrial dysrhythmia as opposed to additional cardiovascular disease. However he will need to undergo further evaluation care as deemed appropriate. With respect to his atrial dysrhythmia he will continue to be monitored. He is now back in sinus rhythm. He will continue rate control therapy. He has been placed on anticoagulant therapy based upon his recurrent issues. It would not be unreasonable based upon his recurrent issues and noting his history of a non-CAD related cardiomyopathy to consider antiarrhythmic therapy in attempt to better control his atrial dysrhythmia. Based upon his previous cardiovascular disease history and may be reasonable to consider agents such as Tikosyn/dofetilide as opposed to type Ic agent such as flecainide/Tambocor which does have a negative inotropic effect and/or type III agent such as sotalol/Betapace based upon his history of diminished LV systolic function in the past. He would need to be monitored in the hospital for a minimum of 4 doses of this medication. This would be to monitor for any obvious adverse proarrhythmic event, etc. Also in the future he would need follow-up of his BMP and his ECG to monitor for any obvious renal insufficiency and/or abnormal elect cardiographic findings that would require alteration of the medication and/or dose. He may also need to be considered for future EP consultation for possible EPS/ RFA. 2. Non-CAD related cardiomyopathy The patient has been described as having a non-CAD related cardiomyopathy in the past. This is based on his noninvasive study results. He has had recurrent chest/back/shoulder discomfort. This occurs with his atrial dysrhythmia. It may be related to his atrial dysrhythmia as opposed to the origination or progression of underlying CAD. However, based upon the concerns he is undergoing evaluation. His cardiac enzymes have been negative thus far. His ECG does demonstrate T-wave abnormalities potentially compatible with myocardial ischemia as noted above. These are not necessarily new but do raise concerns. Thus it may be reasonable to reassess him with at minimum an exercise tolerance test compared to his study from 2017. Certainly if there are any concerns there and he should be considered for further evaluation with diagnostic cardiac catheterization. Otherwise he would need to continue medical management for his non-CAD related cardia myopathy such as beta misty therapy and ADRIAN inhibitor therapy. 3. Chest pain Again he has had recurrent chest pain. He is undergoing noninvasive evaluation. He will continue evaluation care as noted above. Comment: The above was discussed with the patient, his spouse, and the [facility] emergency department staff. This note was generated with [employer] software. It may contain incorrect words, spelling, and punctuation that were not noted in checking the note before signing.
[2017-10-24] MEDS: Metoprolol Tartrate 25 MG Tablet PO (22:12)
[2017-10-24] MEDS: Dofetilide 250 MCG Capsule PO (22:12)
--- NOTE | 2017-10-24 23:15 | EKG12_ITS ---
Test Reason : NSR Blood Pressure : / mmHG Vent. Rate : 073 BPM Atrial Rate : 073 BPM P-R Int : 134 ms QRS Dur : 096 ms QT Int : 394 ms P-R-T Axes : 038 076 -83 degrees QTc Int : 434 ms Normal sinus rhythm ST & T wave abnormality, consider anterolateral ischemia Abnormal ECG Confirmed by MARCO COVARRUBIAS, KEVON ([id number]), legal editor PATI LEON ([id number] on 10/31/2017 8:26:44 AM Referred By: DR WHEELER Confirmed By:KEVON LARA MD
[2017-10-25] VITALS (14 sets, daily range): BP systolic 98–117; BP diastolic 58–77; PULSE 54–85; RESP 16–18; TEMP 36.6–37.1; O2SAT 92–97
[2017-10-25 05:58] LABS: Prothrombin Time (Protime)PT. 13.4 SECONDS (11.7-14.9)
[2017-10-25 06:00] LABS: Absolute Lymphocyte Count 2.56 X10^3/ul (0.83-4.51); Absolute Neutrophil Count 5.7 X10^3/uL (2.0-7.7); Basophil# 0.02 X10^3/uL; Basophil% 0.2 % (0-1); Eosinophil# 0.07 X10^3/uL; Eosinophils% 0.8 % (0-5); Hematocrit 46.7 % (40-54); Hemoglobin 15.9 g/dl (13.0-16.5); Lymphocyte # 2.56 X10^3/ul (4.0); Lymphocyte % 28.7 % (19-41); Mean Corpuscular Hgb 30.4 pg (27.0-32.0); Mean Corpuscular Volume 89.3 fL (80-94); Mean Platelet Vol. 10.4 fl (6.2-12.0); Monocyte# 0.58 X10^3/uL; Monocyte% 6.5 % (0-10); Neutrophil # 5.68 X10^3/uL (2.7-7.7); Neutrophil % 63.6 % (47-70); Platelet Count 214 K/mm3 (150-450); RBC Distribution Width CV 14.2 % (11.6-14.6); RBC Distribution Width SD 46.4 fl (35.1-43.9); Red Blood Count 5.23 M/mm3 (4.6-6.2); White Blood Count 8.9 K/mm3 (4.4-11.0)
[2017-10-25 06:16] LABS: Anion Gap 7 (5-15); BUN 11 mg/dL (7-18); BUN/Creat Ratio 12.2 RATIO (10-20); Calcium,Total 8.3 mg/dL (8.5-10.1); Chloride 110 mmol/L (98-107); EST Glomerular Filtration Rate 97 mL/min (>60); Est Glom Filt Rate - Afr Amer 117 mL/min (>60); Estimated Creatinine Clearance 105.83 ml/min; Glucose 89 mg/dL (74-106); Potassium 4.2 mmol/L (3.5-5.1); Sodium Level 144 mmol/L (136-145)
[2017-10-25 06:24] LABS: POSITIVE COUNT NO; POSITIVE DIFFERENTIAL NO; POSITIVE MORPHOLOGY NO
[2017-10-25] MEDS: Lisinopril 5 MG Tablet PO (06:41)
[2017-10-25] MEDS: Dofetilide 250 MCG Capsule PO ×2 (07:54→21:20)
--- NOTE | 2017-10-25 09:00 | EKG12_ITS ---
Test Reason : MED Blood Pressure : / mmHG Vent. Rate : 058 BPM Atrial Rate : 058 BPM P-R Int : 132 ms QRS Dur : 092 ms QT Int : 526 ms P-R-T Axes : 040 068 -78 degrees QTc Int : [address] & T wave abnormality, consider anterolateral ischemia Prolonged QT Abnormal ECG Confirmed by MARCO COVARRUBIAS, KEVON ([id number]), editor managing director PATI LEON ([id number] on 10/31/2017 8:24:25 AM Referred By: SUMMER Confirmed By:KEVON LARA MD
--- NOTE | 2017-10-25 11:01 | STRESSREP ---
Stress Test Report Date: 10/25/2017 Procedure: Pharmacologic stress nuclear imaging study Indications: Atrial fibrillation; cardiomyopathy; chest pain Consent: Per the patient Procedure: The patient underwent pharmacologic (Regadenoson) evaluation with a peak heart rate of 93 beats per minute (52 to predicted maximal heart rate) and a peak blood pressure of 112/62 mmHg. The baseline ECG demonstrated sinus rhythm/sinus bradycardia; T-wave abnormality compatible with myocardial ischemia. The peak pharmacologic ECG demonstrated no obvious ECG changes. There was an isolated PVC during infusion. There was no complaint of chest discomfort during pharmacologic infusion or recovery. The examination was discontinued secondary to completion of protocol. Impression: 1. Pharmacologic (Regadenoson) evaluation 2. Peak pharmacologic ECG with no obvious ECG changes. 3. There was an isolated PVC during infusion 4. Nuclear images pending Myocardial perfusion imaging study: Technique: The patient was injected with 12.8 millicuries of technetium 99m Cardiolite and subsequently rest SPECT Cardiolite nuclear imaging was obtained in the horizontal long, vertical long, and short axis views. The patient underwent pharmacologic (Regadenoson) evaluation with a peak heart rate of 93 beats per minute (52 % percent predicted maximal heart rate) and a peak blood pressure of 112/62 mmHg. The patient was injected with 39 millicuries of technetium 99m Cardiolite and subsequently stress SPECT Cardiolite nuclear imaging was obtained in the horizontal long, vertical long, and short axis views. A gated Cardiolite study at peak stress was obtained. Interpretation: Rest and stress SPECT Cardiolite nuclear imaging status post realignment, normalization, and attenuation correction demonstrate a small area of subtle diminished tracer uptake near the apical segments without significant change between rest and stress. There is end systolic thickening and brightening. The gated Cardiolite study demonstrates myocardial thickening and inward wall motion. The reported LVEF is 52 %. Impression: 1. Rest and stress SPECT cardio light nuclear imaging demonstrate a small area of subtle diminished tracer uptake near the apical segments without significant change between rest and stress appearing compatible with physiologic apical thinning with no myocardial perfusion changes consider diagnostic for associated stress-induced myocardial ischemia or previous myocardial injury/infarction. 2. The gated Cardiolite study reports an LVEF of 52 %. This note was generated with [employer] software. It may contain incorrect words, spelling, and punctuation that were not noted in checking the note before signing.
--- NOTE | 2017-10-25 11:04 | STRESSREP_ITS ---
Stress Test Report Date: 10/25/2017 Procedure: Pharmacologic stress nuclear imaging study Indications: Atrial fibrillation; cardiomyopathy; chest pain Consent: Per the patient Procedure: The patient underwent pharmacologic (Regadenoson) evaluation with a peak heart rate of 93 beats per minute (52 to predicted maximal heart rate) and a peak blood pressure of 112/62 mmHg. The baseline ECG demonstrated sinus rhythm/sinus bradycardia; T-wave abnormality compatible with myocardial ischemia. The peak pharmacologic ECG demonstrated no obvious ECG changes. There was an isolated PVC during infusion. There was no complaint of chest discomfort during pharmacologic infusion or recovery. The examination was discontinued secondary to completion of protocol. Impression: 1. Pharmacologic (Regadenoson) evaluation 2. Peak pharmacologic ECG with no obvious ECG changes. 3. There was an isolated PVC during infusion 4. Nuclear images pending Myocardial perfusion imaging study: Technique: The patient was injected with 12.8 millicuries of technetium 99m Cardiolite and subsequently rest SPECT Cardiolite nuclear imaging was obtained in the horizontal long, vertical long, and short axis views. The patient underwent pharmacologic (Regadenoson) evaluation with a peak heart rate of 93 beats per minute (52 % percent predicted maximal heart rate) and a peak blood pressure of 112/62 mmHg. The patient was injected with 39 millicuries of technetium 99m Cardiolite and subsequently stress SPECT Cardiolite nuclear imaging was obtained in the horizontal long, vertical long, and short axis views. A gated Cardiolite study at peak stress was obtained. Interpretation: Rest and stress SPECT Cardiolite nuclear imaging status post realignment, normalization, and attenuation correction demonstrate a small area of subtle diminished tracer uptake near the apical segments without significant change between rest and stress. There is end systolic thickening and brightening. The gated Cardiolite study demonstrates myocardial thickening and inward wall motion. The reported LVEF is 52 %. Impression: 1. Rest and stress SPECT cardio light nuclear imaging demonstrate a small area of subtle diminished tracer uptake near the apical segments without significant change between rest and stress appearing compatible with physiologic apical thinning with no myocardial perfusion changes consider diagnostic for associated stress-induced myocardial ischemia or previous myocardial injury/ infarction. 2. The gated Cardiolite study reports an LVEF of 52 %. This note was generated with [employer] Materialsation software. It may contain incorrect words, spelling, and punctuation that were not noted in checking the note before signing.
--- NOTE | 2017-10-25 11:47 | EKG12_ITS ---
Test Reason : MED Blood Pressure : / mmHG Vent. Rate : 063 BPM Atrial Rate : 063 BPM P-R Int : 132 ms QRS Dur : 094 ms QT Int : 458 ms P-R-T Axes : 038 078 -58 degrees QTc Int : 468 ms Normal sinus rhythm ST & T wave abnormality, consider anterolateral ischemia Prolonged QT Abnormal ECG Confirmed by MARCO COVARRUBIAS, KEVON ([id number]), associate editor PATI LEON ([id number]) on 10/31/2017 8:24:01 AM Referred By: SUMMER Confirmed By:KEVON LARA MD
[2017-10-25] MEDS: Metoprolol Tartrate 25 MG Tablet PO ×2 (12:21→21:20)
--- NOTE | 2017-10-25 12:39 | PCM.PN.CARD ---
Subjectve: The patient is awake and alert. He is now status post evaluation with a transthoracic echocardiogram and a pharmacologic stress nuclear imaging study. He has had no new acute complaints. Objective: Vital Signs Temp Pulse Resp BP Pulse Ox 98.8 F 60 18 110/60 97 10/25/17 12:12 10/25/17 12:21 10/25/17 12:12 10/25/17 12:12 10/25/17 12:12 Oxygen Flow Rate (L/min) 2 Oxygen Delivery Method Room Air Weight: 188 lb Body Mass Index (BMI) 27.7 Intake and Output for Last 24 Hours 10/23/17 10/24/17 10/25/17 23:59 23:59 23:59 Intake Total 281.1 / 281.1 750 / 750 Balance 281.1 / 281.1 750 / 750 General: Awake, Alert, Oriented x 3, Cooperative, No Acute Distress Neck: No JVD Lungs: Clear to auscultation Cardiovascular: Regular Rhythm, Normal S1, Normal S2 Abdomen: Bowel Sounds Present, Soft, Non Tender Extremities: No edema 10/24/17 16:28: Troponin I < 0.015 10/24/17 19:20: Troponin I < 0.015 10/25/17 00:59: Troponin I < 0.015 10/25/17 05:32: WBC 8.9, RBC 5.23, Hgb 15.9, Hct 46.7, MCV 89.3, MCH 30.4, MCHC 34.0, RDW 14.2, RDW Differential 46.4 H, Plt Count 214, MPV 10.4, Immature Gran % (Auto) 0.200, Neut % (Auto) 63.6, Lymph % (Auto) 28.7, [place] % (Auto) 6.5, Eos % (Auto) 0.8, Baso % (Auto) 0.2, Absolute Neuts (auto) 5.7, Total Counted Not Reportable 10/25/17 05:32: PT 13.4, INR 1.0, APTT 32.0 10/25/17 05:32: Sodium 144, Potassium 4.2, Chloride 110 H, Carbon Dioxide 27.0, Anion Gap 7, BUN 11, Creatinine 0.90, Est GFR (MDRD) Af Amer 117, Est GFR (MDRD) Non-Af 97, BUN/Creatinine Ratio 12.2, Glucose 89, Calcium 8.3 L Rhythm: Sinus rhythm EKG: Sinus rhythm; status post second dose of dofetilide, and a heart rate less than 60 bpm, the patient was noted to have a QT/QTc interval of 526/516 respectively. ECHO: Borderline low LV systolic function with an estimated LVEF of 50%: Please see official report Stress Test: Pharmacologic stress nuclear imaging study considered negative for evidence of myocardial ischemia Medical Necessity - Tobacco Use Smoking Status: Never smoker Tobacco Use: Non-smoker Assessment/Plan 1. Paroxysmal atrial fibrillation with rapid ventricular response At the present time he remains in sinus rhythm. He is continuing a combination of rate control therapy, initiation of antiarrhythmic therapy with dofetilide, and continuation of anticoagulant therapy. His cardiac rhythm is being monitored. His ECG is being followed. Based upon his rhythm and his ECG information his dofetilide dose can be adjusted as deemed appropriate. Also in the future he would need follow-up of his BMP and his ECG to monitor for any obvious renal insufficiency and/or abnormal electrocardiographic findings that would require alteration of the medication and/or dose. He may also need to be considered for future EP consultation for possible EPS/RFA. In the interim he will continue to be followed in the hospital as his dofetilide therapy is started. 2. Non-CAD related cardiomyopathy The patient has been described as having a non-CAD related cardiomyopathy in the past. This is based on his noninvasive study results. He has had recurrent chest/back/shoulder discomfort. This occurs with his atrial dysrhythmia. It may be related to his atrial dysrhythmia as opposed to the origination or progression of underlying CAD. He has undergone evaluation as noted above. His overall LV systolic function remains borderline low with an estimated LVEF of 50%. He will continue medical management. 3. Chest pain Again he has had recurrent chest pain. His cardiac enzymes have remained negative. His pharmacologic stress nuclear imaging study appeared to be negative. Thus at the present time it does not appear he requires further evaluation with diagnostic cardiac catheterization. Comment: The above was discussed with the patient, his spouse, and the [facility] emergency department staff. This note was generated with iTManation software. It may contain incorrect words, spelling, and punctuation that were not noted in checking the note before signing.
[2017-10-25] MEDS: APIXABAN 5 MG TABLET PO ×2 (13:28→21:21)
--- NOTE | 2017-10-25 14:18 | PCM.PROGNOTE ---
<Marco Antonio Pickering - Last Filed: 10/25/17 14:18> Subjective: Pt seen and examined post stress test. No CP, Palp, SOB, diziness, LH. Currently resting comfortably in bed. - Physical Exam General: Alert, Oriented x3, Cooperative HEENT: Atraumatic, PERRLA, EOMI, Normocephalic Neck: Supple, No JVD, Negative Carotid Bruits Lungs: Clear to auscultation, Normal air movement Cardiovascular: Regular rate, No murmurs Abdomen: Bowel Sounds Present, Soft, Non Tender Extremities: No edema, Capillary Refill Less than 3 Seconds Skin: No rashes, No breakdown Musculoskeletal: No Tenderness to Palpation of Joints or Extremities Neurological: Cranial nerves II-XII grossly intact Psych/Mental Status: Normal Affect, Appropriate, Alert and oriented to time, place, person, mood and affect Vital Signs Temp Pulse Resp BP Pulse Ox 98.8 F 60 18 110/60 97 10/25/17 12:12 10/25/17 12:21 10/25/17 12:12 10/25/17 12:12 10/25/17 12:12 Oxygen Flow Rate (L/min) 2 Oxygen Delivery Method Room Air Weight: 188 lb Body Mass Index (BMI) 27.7 Intake and Output for Last 24 Hours 10/23/17 10/24/17 10/25/17 23:59 23:59 23:59 Intake Total 281.1 / 281.1 750 / 750 Balance 281.1 / 281.1 750 / 750 Laboratory Tests Past 24 Hrs 10/24/17 10/24/17 10/25/17 16:28 19:20 00:59 WBC RBC Hgb Hct MCV MCH MCHC RDW RDW Differential Plt Count MPV Immature Gran % (Auto) Neut % (Auto) Lymph % (Auto) [place] % (Auto) Eos % (Auto) Baso % (Auto) Absolute Neuts (auto) Absolute Lymphs (auto) Total Counted PT INR APTT Sodium Potassium Chloride Carbon Dioxide Anion Gap BUN Creatinine Estim Creat Clear Calc Est GFR (MDRD) Af Amer Est GFR (MDRD) Non-Af BUN/Creatinine Ratio Glucose Calcium Troponin I < 0.015 < 0.015 < 0.015 10/25/17 10/25/17 10/25/17 05:32 05:32 05:32 WBC 8.9 RBC 5.23 Hgb 15.9 Hct 46.7 MCV 89.3 MCH 30.4 MCHC 34.0 RDW 14.2 RDW Differential 46.4 H Plt Count 214 MPV 10.4 Immature Gran % (Auto) 0.200 Neut % (Auto) 63.6 Lymph % (Auto) 28.7 [place] % (Auto) 6.5 Eos % (Auto) 0.8 Baso % (Auto) 0.2 Absolute Neuts (auto) 5.7 Absolute Lymphs (auto) 2.56 Total Counted Not Reportable PT 13.4 INR 1.0 APTT 32.0 Sodium 144 Potassium 4.2 Chloride 110 H Carbon Dioxide 27.0 Anion Gap 7 BUN 11 Creatinine 0.90 Estim Creat Clear Calc 105.83 Est GFR (MDRD) Af Amer 117 Est GFR (MDRD) Non-Af 97 BUN/Creatinine Ratio 12.2 Glucose 89 Calcium 8.3 L Troponin I Medical Necessity - Tobacco Use Smoking Status: Never smoker Tobacco Use: Non-smoker Assessment/Plan All Active Problems (Last Reviewed 10/24/17 @ 15:28 by Yasir Álvarez DO) Hypokalemia (Acute) Chest pain (Acute) 1. Paroxysmal atrial fibrillation with rapid ventricular response-now normal sinus rhythm on tikosyn and Cardizem drip. On Eliquis. Will continue to need monitoring and serial EKGs. Stress test is negative. EF 50% on echo, borderline to mildly enlarged left atrium. Trivial valve issues. 2. Non-CAD related cardiomyopathy -continue ADRIAN inhibitor, beta-misty. 3. Chest pain resolved-stress negative, troponin negative ?3. EKG does show new T-wave inversions. DVT prophylaxis: Eliquis DC planning- needs 2-3 days total monitoring on tikosyn This patient was seen by Marco Antonio Pickering PA-C under the supervision of Doctor Sanna. <Jamie Isidro - Last Filed: 10/25/17 14:52> - Physical Exam Vital Signs Temp Pulse Resp BP Pulse Ox 98.8 F 60 18 110/60 97 10/25/17 12:12 10/25/17 12:21 10/25/17 12:12 10/25/17 12:12 10/25/17 12:12 Oxygen Flow Rate (L/min) 2 Oxygen Delivery Method Room Air Weight: 188 lb Body Mass Index (BMI) 27.7 Intake and Output for Last 24 Hours 10/23/17 10/24/17 10/25/17 23:59 23:59 23:59 Intake Total 281.1 / 281.1 750 / 750 Balance 281.1 / 281.1 750 / 750 Laboratory Tests Past 24 Hrs 10/24/17 10/24/17 10/25/17 16:28 19:20 00:59 WBC RBC Hgb Hct MCV MCH MCHC RDW RDW Differential Plt Count MPV Immature Gran % (Auto) Neut % (Auto) Lymph % (Auto) [place] % (Auto) Eos % (Auto) Baso % (Auto) Absolute Neuts (auto) Absolute Lymphs (auto) Total Counted PT INR APTT Sodium Potassium Chloride Carbon Dioxide Anion Gap BUN Creatinine Estim Creat Clear Calc Est GFR (MDRD) Af Amer Est GFR (MDRD) Non-Af BUN/Creatinine Ratio Glucose Calcium Troponin I < 0.015 < 0.015 < 0.015 10/25/17 10/25/17 10/25/17 05:32 05:32 05:32 WBC 8.9 RBC 5.23 Hgb 15.9 Hct 46.7 MCV 89.3 MCH 30.4 MCHC 34.0 RDW 14.2 RDW Differential 46.4 H Plt Count 214 MPV 10.4 Immature Gran % (Auto) 0.200 Neut % (Auto) 63.6 Lymph % (Auto) 28.7 [place] % (Auto) 6.5 Eos % (Auto) 0.8 Baso % (Auto) 0.2 Absolute Neuts (auto) 5.7 Absolute Lymphs (auto) 2.56 Total Counted Not Reportable PT 13.4 INR 1.0 APTT 32.0 Sodium 144 Potassium 4.2 Chloride 110 H Carbon Dioxide 27.0 Anion Gap 7 BUN 11 Creatinine 0.90 Estim Creat Clear Calc 105.83 Est GFR (MDRD) Af Amer 117 Est GFR (MDRD) Non-Af 97 BUN/Creatinine Ratio 12.2 Glucose 89 Calcium 8.3 L Troponin I Assessment/Plan Hospitalist note: I am seeing this patient in conjunction with Marco Antonio Pickering. I independently seen and examined the patient. Progress note above, laboratory data and imaging studies reviewed. I agree with the above treatment plan. Patient seen and examined. No acute events overnight. He denies any complaints. Denies chest pain or shortness of breath. He has been in sinus rhythm, vital signs are stable. - Physical Exam General: Alert, Oriented x3, Cooperative, No apparent distress. HEENT: Atraumatic, PERRLA, EOMI. Neck: Supple, No JVD, Negative Carotid Bruits, Trachea Midline, Thyroid Normal. Lungs: Clear to auscultation, Normal air movement, No rhonchi, No wheeze, No rales. Cardiovascular: Regular rate, Regular Rhythm, Normal S1, Normal S2, PMI Normal. Abdomen: Bowel Sounds Present, Soft, Non Tender, Non-Distended, No Hepato-splenomegaly. Extremities: No clubbing, No cyanosis, No edema Skin: No rashes, No breakdown Neurological: Neuro grossly intact Vital Signs are stable. Assessment and plan: #1 A. fib with RVR: Returning back to sinus rhythm, rate is controlled. He is on IV Cardizem drip as well as metoprolol for rate control, started on Tikosyn. He is on Eliquis for anticoagulation. EKG from today revealed prolonged QTC. He is asymptomatic, stable. 2D echocardiogram revealed ejection fraction 50%, other findings reviewed. Stress test performed and was negative for stress-induced myocardial ischemia. Routine blood work was unremarkable. Cardiac enzymes are negative. TSH is normal. Plan to continue same treatment. #2 nonischemic cardiomyopathy: Without evidence of acute CHF. Patient is on lisinopril and metoprolol. Plan as above. #3 other chronic medical problems: Stable, continue current medications as above. This note was generated with [employer] dictation software. It may contain incorrect words, spelling, and punctuation that were not noted in checking the note before signing. Code Visit Inpatient E&M: 08043 Subs Hosp L2
--- NOTE | 2017-10-25 14:23 | PN_ITS ---
<Marco Antonio Pickering - Last Filed: 10/25/17 14:18> Subjective: Pt seen and examined post stress test. No CP, Palp, SOB, diziness, LH. Currently resting comfortably in bed. - Physical Exam General: Alert, Oriented x3, Cooperative HEENT: Atraumatic, PERRLA, EOMI, Normocephalic Neck: Supple, No JVD, Negative Carotid Bruits Lungs: Clear to auscultation, Normal air movement Cardiovascular: Regular rate, No murmurs Abdomen: Bowel Sounds Present, Soft, Non Tender Extremities: No edema, Capillary Refill Less than 3 Seconds Skin: No rashes, No breakdown Musculoskeletal: No Tenderness to Palpation of Joints or Extremities Neurological: Cranial nerves II-XII grossly intact Psych/Mental Status: Normal Affect, Appropriate, Alert and oriented to time, place, person, mood and affect Vital Signs Temp Pulse Resp BP Pulse Ox 98.8 F 60 18 110/60 97 10/25/17 12:12 10/25/17 12:21 10/25/17 12:12 10/25/17 12:12 10/25/17 12:12 Oxygen Flow Rate (L/min) 2 Oxygen Delivery Method Room Air Weight: 188 lb Body Mass Index (BMI) 27.7 Intake and Output for Last 24 Hours 10/23/17 10/24/17 10/25/17 23:59 23:59 23:59 Intake Total 281.1 / 281.1 750 / 750 Balance 281.1 / 281.1 750 / 750 Laboratory Tests Past 24 Hrs 10/24/17 10/24/17 10/25/17 16:28 19:20 00:59 WBC RBC Hgb Hct MCV MCH MCHC RDW RDW Differential Plt Count MPV Immature Gran % (Auto) Neut % (Auto) Lymph % (Auto) [place] % (Auto) Eos % (Auto) Baso % (Auto) Absolute Neuts (auto) Absolute Lymphs (auto) Total Counted PT INR APTT Sodium Potassium Chloride Carbon Dioxide Anion Gap BUN Creatinine Estim Creat Clear Calc Est GFR (MDRD) Af Amer Est GFR (MDRD) Non-Af BUN/Creatinine Ratio Glucose Calcium Troponin I < 0.015 < 0.015 < 0.015 10/25/17 10/25/17 10/25/17 05:32 05:32 05:32 WBC 8.9 RBC 5.23 Hgb 15.9 Hct 46.7 MCV 89.3 MCH 30.4 MCHC 34.0 RDW 14.2 RDW Differential 46.4 H Plt Count 214 MPV 10.4 Immature Gran % (Auto) 0.200 Neut % (Auto) 63.6 Lymph % (Auto) 28.7 [place] % (Auto) 6.5 Eos % (Auto) 0.8 Baso % (Auto) 0.2 Absolute Neuts (auto) 5.7 Absolute Lymphs (auto) 2.56 Total Counted Not Reportable PT 13.4 INR 1.0 APTT 32.0 Sodium 144 Potassium 4.2 Chloride 110 H Carbon Dioxide 27.0 Anion Gap 7 BUN 11 Creatinine 0.90 Estim Creat Clear Calc 105.83 Est GFR (MDRD) Af Amer 117 Est GFR (MDRD) Non-Af 97 BUN/Creatinine Ratio 12.2 Glucose 89 Calcium 8.3 L Troponin I Medical Necessity - Tobacco Use Smoking Status: Never smoker Tobacco Use: Non-smoker Assessment/Plan All Active Problems (Last Reviewed 10/24/17 @ 15:28 by Yasir Álvarez DO) Hypokalemia (Acute) Chest pain (Acute) 1. Paroxysmal atrial fibrillation with rapid ventricular response-now normal sinus rhythm on tikosyn and Cardizem drip. On Eliquis. Will continue to need monitoring and serial EKGs. Stress test is negative. EF 50% on echo, borderline to mildly enlarged left atrium. Trivial valve issues. 2. Non-CAD related cardiomyopathy -continue ADRIAN inhibitor, beta-misty. 3. Chest pain resolved-stress negative, troponin negative ?3. EKG does show new T-wave inversions. DVT prophylaxis: Eliquis DC planning- needs 2-3 days total monitoring on tikosyn This patient was seen by Marco Antonio Pickering PA-C under the supervision of Doctor Sanna. <Jamie Isidro - Last Filed: 10/25/17 14:52> - Physical Exam Vital Signs Temp Pulse Resp BP Pulse Ox 98.8 F 60 18 110/60 97 10/25/17 12:12 10/25/17 12:21 10/25/17 12:12 10/25/17 12:12 10/25/17 12:12 Oxygen Flow Rate (L/min) 2 Oxygen Delivery Method Room Air Weight: 188 lb Body Mass Index (BMI) 27.7 Intake and Output for Last 24 Hours 10/23/17 10/24/17 10/25/17 23:59 23:59 23:59 Intake Total 281.1 / 281.1 750 / 750 Balance 281.1 / 281.1 750 / 750 Laboratory Tests Past 24 Hrs 10/24/17 10/24/17 10/25/17 16:28 19:20 00:59 WBC RBC Hgb Hct MCV MCH MCHC RDW RDW Differential Plt Count MPV Immature Gran % (Auto) Neut % (Auto) Lymph % (Auto) [place] % (Auto) Eos % (Auto) Baso % (Auto) Absolute Neuts (auto) Absolute Lymphs (auto) Total Counted PT INR APTT Sodium Potassium Chloride Carbon Dioxide Anion Gap BUN Creatinine Estim Creat Clear Calc Est GFR (MDRD) Af Amer Est GFR (MDRD) Non-Af BUN/Creatinine Ratio Glucose Calcium Troponin I < 0.015 < 0.015 < 0.015 10/25/17 10/25/17 10/25/17 05:32 05:32 05:32 WBC 8.9 RBC 5.23 Hgb 15.9 Hct 46.7 MCV 89.3 MCH 30.4 MCHC 34.0 RDW 14.2 RDW Differential 46.4 H Plt Count 214 MPV 10.4 Immature Gran % (Auto) 0.200 Neut % (Auto) 63.6 Lymph % (Auto) 28.7 [place] % (Auto) 6.5 Eos % (Auto) 0.8 Baso % (Auto) 0.2 Absolute Neuts (auto) 5.7 Absolute Lymphs (auto) 2.56 Total Counted Not Reportable PT 13.4 INR 1.0 APTT 32.0 Sodium 144 Potassium 4.2 Chloride 110 H Carbon Dioxide 27.0 Anion Gap 7 BUN 11 Creatinine 0.90 Estim Creat Clear Calc 105.83 Est GFR (MDRD) Af Amer 117 Est GFR (MDRD) Non-Af 97 BUN/Creatinine Ratio 12.2 Glucose 89 Calcium 8.3 L Troponin I Assessment/Plan Hospitalist note: I am seeing this patient in conjunction with Marco Antonio Pickering. I independently seen and examined the patient. Progress note above, laboratory data and imaging studies reviewed. I agree with the above treatment plan. Patient seen and examined. No acute events overnight. He denies any complaints. Denies chest pain or shortness of breath. He has been in sinus rhythm, vital signs are stable. - Physical Exam General: Alert, Oriented x3, Cooperative, No apparent distress. HEENT: Atraumatic, PERRLA, EOMI. Neck: Supple, No JVD, Negative Carotid Bruits, Trachea Midline, Thyroid Normal. Lungs: Clear to auscultation, Normal air movement, No rhonchi, No wheeze, No rales. Cardiovascular: Regular rate, Regular Rhythm, Normal S1, Normal S2, PMI Normal. Abdomen: Bowel Sounds Present, Soft, Non Tender, Non-Distended, No Hepato- splenomegaly. Extremities: No clubbing, No cyanosis, No edema Skin: No rashes, No breakdown Neurological: Neuro grossly intact Vital Signs are stable. Assessment and plan: #1 A. fib with RVR: Returning back to sinus rhythm, rate is controlled. He is on IV Cardizem drip as well as metoprolol for rate control, started on Tikosyn. He is on Eliquis for anticoagulation. EKG from today revealed prolonged QTC. He is asymptomatic, stable. 2D echocardiogram revealed ejection fraction 50% , other findings reviewed. Stress test performed and was negative for stress- induced myocardial ischemia. Routine blood work was unremarkable. Cardiac enzymes are negative. TSH is normal. Plan to continue same treatment. #2 nonischemic cardiomyopathy: Without evidence of acute CHF. Patient is on lisinopril and metoprolol. Plan as above. #3 other chronic medical problems: Stable, continue current medications as above. This note was generated with [employer] dictation software. It may contain incorrect words, spelling, and punctuation that were not noted in checking the note before signing. Code Visit Inpatient E&M: 10404 Subs Hosp L2
[2017-10-25] MEDS: 0.9% NaCl Peripheral Flush Adult/Peds IV (14:58)
[2017-10-25] MEDS: Morphine 2 MG/ML Syringe IV (14:58)
--- NOTE | 2017-10-25 16:32 | CASEMGMT ---
Face to Face with patient for initial transition planning/care coordination assessment. JAZZ PALENCIA introduced self and role at [facility], pt voices understanding and consents to assessment at this time. Pt is sitting up in bed in no distress at this time. Pt is A/O x4 at this time and answers all questions appropriately at this time. Care providers, pharmacy, and demographics verified. See attached link. Pt voices no further concerns/needs at this time. Advised pt to ask for CM if any further questions/concerns/needs arise, voices understanding. Per , pt was prescribed Eliquis and was just started on Tikosyn. Eliquis had been sent to pharmacy by ED physician when pt was seen on 10/23 and discharged from ED. Call to [facility] pharmacy at this time and per [facility] needs a prior auth. Call to insurance and after several transfers, this JAZZ CM was informed that the dept that would complete prior auth is not back in until friday am. Pt/ and Liz FLOYD updated at this time, voice understanding. Marycarmen SCHULZ updated also and voices understanding. Per Liz FLOYD, unsure what Tikosyn dose may be and unable to e-scribe at this time. This JAZZ PALENCIA will f/u on all Friday10/27/17 morning. states already given Eliquis coupon cards previously. [place] JAZZ [place]
[2017-10-26] VITALS (12 sets, daily range): BP systolic 108–127; BP diastolic 63–77; PULSE 49–88; RESP 16–18; TEMP 36.7–37.4; O2SAT 93–97
--- NOTE | 2017-10-26 00:20 | EKG12_ITS ---
Test Reason : 3.5 HR AFTER MED Blood Pressure : / mmHG Vent. Rate : 056 BPM Atrial Rate : 056 BPM P-R Int : 134 ms QRS Dur : 112 ms QT Int : 484 ms P-R-T Axes : 033 072 009 degrees QTc Int : 467 ms Sinus bradycardia T wave abnormality, consider anterior ischemia Prolonged QT Abnormal ECG Confirmed by MARCO COVARRUBIAS, KEVON ([id number]), video effects editor PATI LEON ([id number]) on 10/31/2017 8:21:48 AM Referred By: DR LARA Confirmed By:KEVON LARA MD
[2017-10-26 07:02] LABS: Anion Gap 6 (5-15); BUN 15 mg/dL (7-18); BUN/Creat Ratio 15.8 RATIO (10-20); Calcium,Total 8.4 mg/dL (8.5-10.1); Chloride 111 mmol/L (98-107); Creatinine, Serum 0.95 mg/dL (0.70-1.30); EST Glomerular Filtration Rate 92 mL/min (>60); Est Glom Filt Rate - Afr Amer 111 mL/min (>60); Estimated Creatinine Clearance 100.26 ml/min; Glucose 91 mg/dL (74-106); Potassium 4.2 mmol/L (3.5-5.1); Sodium Level 145 mmol/L (136-145)
[2017-10-26] MEDS: APIXABAN 5 MG TABLET PO ×2 (09:33→21:20)
[2017-10-26] MEDS: Metoprolol Tartrate 25 MG Tablet PO ×2 (09:33→21:20)
[2017-10-26] MEDS: Dofetilide 250 MCG Capsule PO ×2 (09:33→21:22)
[2017-10-26] MEDS: Lisinopril 5 MG Tablet PO (09:34)
--- NOTE | 2017-10-26 12:30 | EKG12_ITS ---
Test Reason : MEDICATION Blood Pressure : / mmHG Vent. Rate : 051 BPM Atrial Rate : 051 BPM P-R Int : 128 ms QRS Dur : 106 ms QT Int : 512 ms P-R-T Axes : 035 071 245 degrees QTc Int : [address] & T wave abnormality, consider anterolateral ischemia Prolonged QT Abnormal ECG Confirmed by MARCO COVARRUBIAS, KEVON ([id number]), dictionary editor PATI LEON ([id number]) on 10/31/2017 8:20:46 AM Referred By: KITTY WHEELER Confirmed By:KEVON LARA MD
--- NOTE | 2017-10-26 13:38 | PN_ITS ---
<Marco Antonio Pickering - Last Filed: 10/26/17 13:35> Subjective: No acute issues. Ambulating in [place] without issues. No Dizziness, LH. No CP, tightness, pressure. No Palp. - Physical Exam General: Alert, Oriented x3, Cooperative HEENT: Atraumatic, PERRLA, EOMI, Normocephalic Neck: Supple, No JVD, Negative Carotid Bruits Lungs: Clear to auscultation, Normal air movement Cardiovascular: Regular rate, No murmurs Abdomen: Bowel Sounds Present, Soft, Non Tender Extremities: No edema, Capillary Refill Less than 3 Seconds Skin: No rashes, No breakdown Musculoskeletal: No Tenderness to Palpation of Joints or Extremities Neurological: Cranial nerves II-XII grossly intact Psych/Mental Status: Normal Affect, Appropriate, Alert and oriented to time, place, person, mood and affect Vital Signs Temp Pulse Resp BP Pulse Ox 98.0 F 67 18 115/69 95 10/26/17 09:25 10/26/17 09:33 10/26/17 09:25 10/26/17 09:25 10/26/17 09:25 Oxygen Flow Rate (L/min) 2 Oxygen Delivery Method Room Air Weight: 188 lb Body Mass Index (BMI) 27.7 Intake and Output for Last 24 Hours 10/24/17 10/25/17 10/26/17 23:59 23:59 23:59 Intake Total 281.1 / 281.1 1650 / 1650 500 / 500 Balance 281.1 / 281.1 1650 / 1650 500 / 500 Laboratory Tests Past 24 Hrs 10/26/17 06:31 Sodium 145 Potassium 4.2 Chloride 111 H Carbon Dioxide 28.0 Anion Gap 6 BUN 15 Creatinine 0.95 Estim Creat Clear Calc 100.26 Est GFR (MDRD) Af Amer 111 Est GFR (MDRD) Non-Af 92 BUN/Creatinine Ratio 15.8 Glucose 91 Calcium 8.4 L Medical Necessity - Tobacco Use Smoking Status: Never smoker Tobacco Use: Non-smoker Assessment/Plan All Active Problems (Last Reviewed 10/24/17 @ 15:28 by Yasir Álvarez DO) Hypokalemia (Acute) Chest pain (Acute) 1. Paroxysmal atrial fibrillation with rapid ventricular response-now normal sinus rhythm on tikosyn and Cardizem drip. On Eliquis. Will continue to need monitoring and serial EKGs. Stress test is negative. EF 50% on echo, borderline to mildly enlarged left atrium. Trivial valve issues. -mild sarahi overnight and this AM -asymptomatic -QT is <500 -continue EKGs 2-3 hours post tikosyn dose -continue to monitor renal function 2. Non-CAD related cardiomyopathy -continue ADRIAN inhibitor, beta-misty. 3. Chest pain resolved-stress negative, troponin negative ?3. EKG does show new T-wave inversions. DVT prophylaxis: Ignacia BHAGAT planning- home tomorrow if no issues overnight This patient was seen by Marco Antonio Pickering PA-C under the supervision of Doctor Sanna. <Jamie Isidro E - Last Filed: 10/26/17 14:23> - Physical Exam Vital Signs Temp Pulse Resp BP Pulse Ox 98.0 F 67 18 108/63 93 10/26/17 14:11 10/26/17 14:11 10/26/17 14:11 10/26/17 14:11 10/26/17 14:11 Oxygen Flow Rate (L/min) 2 Oxygen Delivery Method Room Air Weight: 188 lb Body Mass Index (BMI) 27.7 Intake and Output for Last 24 Hours 10/24/17 10/25/17 10/26/17 23:59 23:59 23:59 Intake Total 281.1 / 281.1 1650 / 1650 500 / 500 Balance 281.1 / 281.1 1650 / 1650 500 / 500 Laboratory Tests Past 24 Hrs 10/26/17 06:31 Sodium 145 Potassium 4.2 Chloride 111 H Carbon Dioxide 28.0 Anion Gap 6 BUN 15 Creatinine 0.95 Estim Creat Clear Calc 100.26 Est GFR (MDRD) Af Amer 111 Est GFR (MDRD) Non-Af 92 BUN/Creatinine Ratio 15.8 Glucose 91 Calcium 8.4 L Assessment/Plan Hospitalist note: I am seeing this patient in conjunction with Marco Antonio Pickering. I independently seen and examined the patient. Progress note above, laboratory data and imaging studies reviewed. I agree with the above treatment plan. No acute events overnight. He denies any complaints. Denies chest pain or shortness of breath. He has been in sinus rhythm, vital signs are stable. - Physical Exam General: Alert, Oriented x3, Cooperative, No apparent distress. HEENT: Atraumatic, PERRLA, EOMI. Neck: Supple, No JVD, Negative Carotid Bruits, Trachea Midline, Thyroid Normal. Lungs: Clear to auscultation, Normal air movement, No rhonchi, No wheeze, No rales. Cardiovascular: Regular rate, Regular Rhythm, Normal S1, Normal S2, PMI Normal. Abdomen: Bowel Sounds Present, Soft, Non Tender, Non-Distended, No Hepato- splenomegaly. Extremities: No clubbing, No cyanosis, No edema Skin: No rashes, No breakdown Neurological: Neuro grossly intact Vital Signs are stable. Assessment and plan: #1 A. fib with RVR: Remains in sinus rhythm, rate is controlled. He is on Tikosyn and metoprolol.. He is on Eliquis for anticoagulation. EKG from today reviewed, QTC is improving. He is asymptomatic, stable. 2D echocardiogram revealed ejection fraction 50%, other findings reviewed. Stress test performed and was negative for stress-induced myocardial ischemia. Routine blood work was unremarkable. Cardiac enzymes are negative. TSH is normal. Plan to continue same treatment, monitoring while on Tikosyn. #2 nonischemic cardiomyopathy: Without evidence of acute CHF. Patient is on lisinopril and metoprolol. Plan as above. #3 other chronic medical problems: Stable, continue current medications as above. This note was generated with [employer] dictation software. It may contain incorrect words, spelling, and punctuation that were not noted in checking the note before signing. Code Visit Inpatient E&M: 73619 Subs Hosp L2
--- NOTE | 2017-10-26 14:29 | PCM.PN.CARD ---
Subjectve: The patient appears to been resting well. He has been up and ambulating in his room. He has had no acute cardiovascular symptoms. Objective: Vital Signs Temp Pulse Resp BP Pulse Ox 98.0 F 67 18 108/63 93 10/26/17 14:11 10/26/17 14:11 10/26/17 14:11 10/26/17 14:11 10/26/17 14:11 Oxygen Flow Rate (L/min) 2 Oxygen Delivery Method Room Air Weight: 188 lb Body Mass Index (BMI) 27.7 Intake and Output for Last 24 Hours 10/24/17 10/25/17 10/26/17 23:59 23:59 23:59 Intake Total 281.1 / 281.1 1650 / 1650 500 / 500 Balance 281.1 / 281.1 1650 / 1650 500 / 500 General: Awake, Alert, Oriented x 3, Cooperative, No Acute Distress Neck: No JVD Lungs: Clear to auscultation Cardiovascular: Regular Rhythm, Normal S1, Normal S2 Vascular: No Carotid Bruits Abdomen: Bowel Sounds Present, Soft, Non Tender Extremities: No Cyanosis, No Clubbing, No edema 10/26/17 06:31: Sodium 145, Potassium 4.2, Chloride 111 H, Carbon Dioxide 28.0, Anion Gap 6, BUN 15, Creatinine 0.95, Est GFR (MDRD) Af Amer 111, Est GFR (MDRD) Non-Af 92, BUN/Creatinine Ratio 15.8, Glucose 91, Calcium 8.4 L Rhythm: Sinus rhythm/sinus bradycardia EKG: Sinus rhythm; continued T-wave abnormality; QT/QTc varying depending upon the patient's underlying cardiac rate Medical Necessity - Tobacco Use Smoking Status: Never smoker Tobacco Use: Non-smoker Assessment/Plan 1. Paroxysmal atrial fibrillation with rapid ventricular response At the present time he remains in sinus rhythm. He is continuing a combination of rate control therapy, initiation of antiarrhythmic therapy with dofetilide, and continuation of anticoagulant therapy. His cardiac rhythm is being monitored. His ECG is being followed. Based upon his rhythm and his ECG information his dofetilide dose can be adjusted as deemed appropriate. Also in the future he would need follow-up of his BMP and his ECG to monitor for any obvious renal insufficiency and/or abnormal electrocardiographic findings that would require alteration of the medication and/or dose. He may also need to be considered for future EP consultation for possible EPS/RFA. In the interim he will continue to be followed in the hospital as his dofetilide therapy is started. 2. Non-CAD related cardiomyopathy The patient has been described as having a non-CAD related cardiomyopathy in the past. This is based on his noninvasive study results. He has had recurrent chest/back/shoulder discomfort. This occurs with his atrial dysrhythmia. It may be related to his atrial dysrhythmia as opposed to the origination or progression of underlying CAD. He has undergone evaluation as noted above. His overall LV systolic function remains borderline low with an estimated LVEF of 50%. He will continue medical management. 3. Chest pain Again he has had recurrent chest pain. His cardiac enzymes have remained negative. His pharmacologic stress nuclear imaging study appeared to be negative. Thus at the present time it does not appear he requires further evaluation with diagnostic cardiac catheterization. At the present time he will remain in the hospital, per his initiation of his antiarrhythmic therapy, for continued cardiac rate and rhythm monitoring and ECG follow-up. Again his antiarrhythmic dose may need to be adjusted based upon his elective cardiographic findings. Otherwise, hopefully on 10/27/2017 he will be able to be released home for continued outpatient cardiovascular follow-up with his primary supervisor [employer]. Comment: The above was discussed with the patient, his spouse, and the [facility] emergency department staff. This note was generated with [employer] dictation software. It may contain incorrect words, spelling, and punctuation that were not noted in checking the note before signing.
--- NOTE | 2017-10-26 14:32 | PN.CARD_ITS ---
Subjectve: The patient appears to been resting well. He has been up and ambulating in his room. He has had no acute cardiovascular symptoms. Objective: Vital Signs Temp Pulse Resp BP Pulse Ox 98.0 F 67 18 108/63 93 10/26/17 14:11 10/26/17 14:11 10/26/17 14:11 10/26/17 14:11 10/26/17 14:11 Oxygen Flow Rate (L/min) 2 Oxygen Delivery Method Room Air Weight: 188 lb Body Mass Index (BMI) 27.7 Intake and Output for Last 24 Hours 10/24/17 10/25/17 10/26/17 23:59 23:59 23:59 Intake Total 281.1 / 281.1 1650 / 1650 500 / 500 Balance 281.1 / 281.1 1650 / 1650 500 / 500 General: Awake, Alert, Oriented x 3, Cooperative, No Acute Distress Neck: No JVD Lungs: Clear to auscultation Cardiovascular: Regular Rhythm, Normal S1, Normal S2 Vascular: No Carotid Bruits Abdomen: Bowel Sounds Present, Soft, Non Tender Extremities: No Cyanosis, No Clubbing, No edema 10/26/17 06:31: Sodium 145, Potassium 4.2, Chloride 111 H, Carbon Dioxide 28.0, Anion Gap 6, BUN 15, Creatinine 0.95, Est GFR (MDRD) Af Amer 111, Est GFR (MDRD ) Non-Af 92, BUN/Creatinine Ratio 15.8, Glucose 91, Calcium 8.4 L Rhythm: Sinus rhythm/sinus bradycardia EKG: Sinus rhythm; continued T-wave abnormality; QT/QTc varying depending upon the patient's underlying cardiac rate Medical Necessity - Tobacco Use Smoking Status: Never smoker Tobacco Use: Non-smoker Assessment/Plan 1. Paroxysmal atrial fibrillation with rapid ventricular response At the present time he remains in sinus rhythm. He is continuing a combination of rate control therapy, initiation of antiarrhythmic therapy with dofetilide, and continuation of anticoagulant therapy. His cardiac rhythm is being monitored. His ECG is being followed. Based upon his rhythm and his ECG information his dofetilide dose can be adjusted as deemed appropriate. Also in the future he would need follow-up of his BMP and his ECG to monitor for any obvious renal insufficiency and/or abnormal electrocardiographic findings that would require alteration of the medication and/or dose. He may also need to be considered for future EP consultation for possible EPS/ RFA. In the interim he will continue to be followed in the hospital as his dofetilide therapy is started. 2. Non-CAD related cardiomyopathy The patient has been described as having a non-CAD related cardiomyopathy in the past. This is based on his noninvasive study results. He has had recurrent chest/back/shoulder discomfort. This occurs with his atrial dysrhythmia. It may be related to his atrial dysrhythmia as opposed to the origination or progression of underlying CAD. He has undergone evaluation as noted above. His overall LV systolic function remains borderline low with an estimated LVEF of 50%. He will continue medical management. 3. Chest pain Again he has had recurrent chest pain. His cardiac enzymes have remained negative. His pharmacologic stress nuclear imaging study appeared to be negative. Thus at the present time it does not appear he requires further evaluation with diagnostic cardiac catheterization. At the present time he will remain in the hospital, per his initiation of his antiarrhythmic therapy, for continued cardiac rate and rhythm monitoring and ECG follow-up. Again his antiarrhythmic dose may need to be adjusted based upon his elective cardiographic findings. Otherwise, hopefully on 10/27/2017 he will be able to be released home for continued outpatient cardiovascular follow- up with his primary iv therapy nurse. Comment: The above was discussed with the patient, his spouse, and the [facility] emergency department staff. This note was generated with [employer] dictation software. It may contain incorrect words, spelling, and punctuation that were not noted in checking the note before signing.
[2017-10-26] MEDS: Mag Hydrox/Al Hydrox/Simeth 30 ML UDC PO (15:07)
[2017-10-26] MEDS: 0.9% NaCl Peripheral Flush Adult/Peds IV (20:38)
[2017-10-27] VITALS (7 sets, daily range): BP systolic 87–124; BP diastolic 53–73; PULSE 51–71; RESP 16–18; TEMP 36.6–37.1; O2SAT 95–96
--- NOTE | 2017-10-27 00:22 | EKG12_ITS ---
Test Reason : Blood Pressure : / mmHG Vent. Rate : 053 BPM Atrial Rate : 053 BPM P-R Int : 132 ms QRS Dur : 092 ms QT Int : 482 ms P-R-T Axes : 031 064 018 degrees QTc Int : 452 ms Sinus bradycardia T wave abnormality, consider anterior ischemia Abnormal ECG Confirmed by MARCO COVARRUBIAS, KEVON ([id number]), avid editor PATI LEON ([id number]) on 10/30/2017 12:49:39 PM Referred By: Confirmed By:KEVON LARA MD
[2017-10-27 06:22] LABS: Anion Gap 7 (5-15); BUN 14 mg/dL (7-18); BUN/Creat Ratio 15.2 RATIO (10-20); Calcium,Total 8.3 mg/dL (8.5-10.1); Chloride 111 mmol/L (98-107); Creatinine, Serum 0.92 mg/dL (0.70-1.30); EST Glomerular Filtration Rate 95 mL/min (>60); Est Glom Filt Rate - Afr Amer 114 mL/min (>60); Estimated Creatinine Clearance 103.53 ml/min; Glucose 90 mg/dL (74-106); Potassium 4.1 mmol/L (3.5-5.1); Sodium Level 145 mmol/L (136-145)
--- NOTE | 2017-10-27 07:35 | PN.CARD_ITS ---
Subjectve: Patient seen and evaluated. Appears to be doing well. Still maintaining sinus rhythm. Objective: Vital Signs Temp Pulse Resp BP Pulse Ox 97.8 F 57 L 18 123/70 H 95 10/27/17 04:30 10/27/17 07:15 10/27/17 04:30 10/27/17 04:30 10/27/17 04:30 Oxygen Flow Rate (L/min) 2 Oxygen Delivery Method Room Air Weight: 188 lb Body Mass Index (BMI) 27.7 Intake and Output for Last 24 Hours 10/25/17 10/26/17 10/27/17 23:59 23:59 23:59 Intake Total 1650 / 1650 500 / 500 Balance 1650 / 1650 500 / 500 General: Awake, Alert, Oriented x 3 HEENT: PERRL, EOMI, Sclera Non Icteric Neck: Supple, Good ROM, No Lymph Node Enlargement Lungs: Clear to auscultation Cardiovascular: Regular Rhythm, Normal S1, Normal S2, No Murmurs, No Rubs, No Gallops Vascular: No Carotid Bruits, Normal Femoral Pulses, Normal Radial Pulses, Normal Dorsalis Pedal Pulse, Normal Posterior Tibial Pulses Abdomen: Bowel Sounds Present, Soft, Non Tender, No HSM, No Organomegaly Extremities: No Cyanosis, No Clubbing, No edema Neurological: No Focal Motor or Sensory Deficit 10/27/17 05:40: Sodium 145, Potassium 4.1, Chloride 111 H, Carbon Dioxide 27.0, Anion Gap 7, BUN 14, Creatinine 0.92, Est GFR (MDRD) Af Amer 114, Est GFR (MDRD ) Non-Af 95, BUN/Creatinine Ratio 15.2, Glucose 90, Calcium 8.3 L Rhythm: EKG: Normal sinus rhythm with no acute changes T-wave inversions noted anteriorly. No QT prolongation present ECHO: Stress Test: Cardiac Cath: PCI: CT Surgery: Holter monitor: EPS: PPM: CXR: Chest CT Scan: Medical Necessity - Tobacco Use Smoking Status: Never smoker Tobacco Use: Non-smoker Assessment/Plan 1. Paroxysmal atrial fibrillation with rapid ventricular response At the present time he remains in sinus rhythm. He is continuing a combination of rate control therapy, initiation of antiarrhythmic therapy with dofetilide, and continuation of anticoagulant therapy.His cardiac rhythm is being monitored. His ECG is being followed. Based upon his rhythm and his ECG information his dofetilide dose can be adjusted as deemed appropriate. On his electrocardiogram this morning he is maintaining sinus rhythm with a QT interval of 452 2. Non-CAD related cardiomyopathy The patient has been described as having a non-CAD related cardiomyopathy in the past. This is based on his noninvasive study results. He has had recurrent chest/back/shoulder discomfort. This occurs with his atrial dysrhythmia. It may be related to his atrial dysrhythmia as opposed to the origination or progression of underlying CAD.He has undergone evaluation as noted above. His overall LV systolic function remains borderline low with an estimated LVEF of 50%. 3. Chest pain Again he has had recurrent chest pain. His cardiac enzymes have remained negative. His pharmacologic stress nuclear imaging study appeared to be negative. Thus at the present time it does not appear he requires further evaluation with diagnostic cardiac catheterization. At the present time he will remain in the hospital, per his initiation of his antiarrhythmic therapy, for continued cardiac rate and rhythm monitoring and ECG follow-up. Again his antiarrhythmic dose may need to be adjusted based upon his cardiographic findings. He can be discharged home later today for outpatient follow-up in my office.
[2017-10-27] MEDS: APIXABAN 5 MG TABLET PO (09:58)
[2017-10-27] MEDS: Lisinopril 5 MG Tablet PO (09:58)
[2017-10-27] MEDS: Dofetilide 250 MCG Capsule PO (09:58)
[2017-10-27] MEDS: Metoprolol Tartrate 25 MG Tablet PO (09:58)
--- NOTE | 2017-10-27 10:15 | CASEMGMT ---
Addendum entered by Teresa Hernandez 10/27/17 12:37: Call to [facility] pharmacy and per tech, total for all 4 scripts is $53.00. Pt/ updated at this time, voices understanding and pt is ready for dispo. Mishel SCHULZ aware at this time, voices understanding. Kimberly SCHULZ CM Original Note: Call to [employer] to obtain prior auth for pt's Eliquis and prior auth obtained at this time and is good for one year per rep with . Rep also states that the generic for Tikosyn will be a covered med but script has not been sent yet. Liz FLOYD and pt's updated on all at this time, voice understanding. Tikosyn e-scribed to [facility] and this [facility] placed call and they state that Eliquis went through for a co-pay of $30 and to call back 'in a couple hours' to check the Tikosyn coverage/co-pay. Kimberly SCHULZ CM
--- NOTE | 2017-10-27 11:26 | PCM.DC ---
You will use the following diet at home:: Cardiac Your food should be the consistency of: Regular Your liquids should be the consistency of: Regular/Thin Discharge Activity: Return to Normal Activity Return to work on:: 10/30/17 Allergies/Adverse Reactions: Allergies No Known Allergies Allergy (Verified 10/20/17 14:55) Medications to take at Discharge lisinopril 5 mg tablet 5 mg PO DAILY #90 tab 03/05/17 Hydrocodone/Acetaminophen [Hydrocodon-Acetaminophen 5-325] 1 tab PO 4X/DAY PRN PRN 10/24/17 Apixaban [Eliquis] 5 mg PO BID #60 tab 10/27/17 Dofetilide [Tikosyn] 250 mcg PO Q12 #60 cap 10/27/17 Metoprolol Tartrate [Lopressor (beta misty)] 25 mg PO BID #60 tab 10/27/17 The following prescriptions were given: Apixaban [Eliquis] 5 mg PO BID #60 tab Dofetilide [Tikosyn] 250 mcg PO Q12 #60 cap Metoprolol Tartrate [Lopressor (beta misty)] 25 mg PO BID #60 tab Primary Care Physician: Eddie Combs MD [Primary Care Provider] - Please follow up with your Primary Care Physician in: 1-2 weeks Test Results: Test results from this visit will be discussed in further detail at your follow-up appointment, if applicable. Please Follow Up With: Joe Leahy MD When: 2 weeks Proposed Discharge Date: 10/27/17
--- NOTE | 2017-10-27 11:29 | DCINST_ITS ---
You will use the following diet at home:: Cardiac Your food should be the consistency of: Regular Your liquids should be the consistency of: Regular/Thin Discharge Activity: Return to Normal Activity Return to work on:: 10/30/17 Allergies/Adverse Reactions: Allergies No Known Allergies Allergy (Verified 10/20/17 14:55) Medications to take at Discharge lisinopril 5 mg tablet 5 mg PO DAILY #90 tab 03/05/17 Hydrocodone/Acetaminophen [Hydrocodon-Acetaminophen 5-325] 1 tab PO 4X/DAY PRN PRN 10/24/17 Apixaban [Eliquis] 5 mg PO BID #60 tab 10/27/17 Dofetilide [Tikosyn] 250 mcg PO Q12 #60 cap 10/27/17 Metoprolol Tartrate [Lopressor (beta misty)] 25 mg PO BID #60 tab 10/27/17 The following prescriptions were given: Apixaban [Eliquis] 5 mg PO BID #60 tab Dofetilide [Tikosyn] 250 mcg PO Q12 #60 cap Metoprolol Tartrate [Lopressor (beta misty)] 25 mg PO BID #60 tab Primary Care Physician: Eddie Combs MD [Primary Care Provider] - Please follow up with your Primary Care Physician in: 1-2 weeks Test Results: Test results from this visit will be discussed in further detail at your follow- up appointment, if applicable. Please Follow Up With: Joe Leahy MD When: 2 weeks Proposed Discharge Date: 10/27/17
--- NOTE | 2017-10-27 12:28 | PCM.DC.SUM ---
<Marco Antonio Pickering - Last Filed: 10/27/17 12:28> Discharge Date and Diagnosis Date of Admission: 10/24/17 Date of Discharge: 10/27/17 - Primary Discharge Diagnosis Paroxysmal Afib with RVR NonCAD related Cardiomyopathy Hx PE - Secondary Discharge Diagnosis Chronic Problems (Last Reviewed 10/24/17 @ 15:28 by Yasir Álvarez DO) Paroxysmal atrial fibrillation (Chronic) Atrial fibrillation with RVR (Chronic) Cardiomyopathy (Chronic) Hospital Course and Treatment Imaging Results: RAD/Chest 1 View (Portable) IMPRESSION: No acute cardiopulmonary disease. Stress test: Impression: 1. Rest and stress SPECT cardio light nuclear imaging demonstrate a small area of subtle diminished tracer uptake near the apical segments without significant change between rest and stress appearing compatible with physiologic apical thinning with no myocardial perfusion changes consider diagnostic for associated stress-induced myocardial ischemia or previous myocardial injury/infarction. 2. The gated Cardiolite study reports an LVEF of 52 %. This note was generated with [employer] dictation software. It may contain incorrect words, spelling, and punctuation that were not noted in checking the note before signing. Echo: Interpretation Summary The study was technically difficult. Left ventricular systolic function is lower limits of normal. The estimated ejection fraction is 50 %. Borderline to mildly enlarged left atrium. Trivial mitral valve insufficiency. Trivial tricuspid valve insufficiency. Trivial pulmonic valve insufficiency. Unable to estimate RV systolic pressure/pulmonary artery pressure due to technically difficult study. Diastolic function: considered indeterminate. Consults: Yariw/Armond - cardiology Operations: None Procedures: 2-D Echocardiogram, Stress test Summary of Care Provided: Physical exam on day of discharge: General: Resting comfortably NAD Psych: A/Ox3 normal affect HEENT: PEARRLA AT NC Neck: Supple NT CV: RRR no m/t/r/g/h Resp: CTA Abd: [id number] Soft NT no guarding or rigidity Ext: DP2+= no edema Skin: W/D normal turgor Lymph/Heme: No active bleeding or adenopathy Neuro: CN2-12 intact Hospital course: The patient is a 41 year old M with a hx of A fib and non CAD mediated cardiomyopathy who presented to the ER with palpitations and was found to be in Afib with RVR. He was started on Cardizem and eliquis and admitted to the PCU with cardiology consult. He had some associated chest pain so he underwent stress testing which was negative for ischemia. He had a repeat echo that was unremarkable. His rate was controlled and he was converted to tikosyn therapy. He required cardiac monitoring with serial EKGs with his tikosyn dosing. He had no issues with the tikosyn with respect to his renal function, EKGs, QT intervals. He had no further palpitations. He was discharged on eliquis and tikosyn to home in stable condition. Please follow up with your PCP and home mortgage disclosure act specialist (Armond). This patient was seen by Marco Antonio Pickering PA-C under the supervision of Doctor Misa. [] Discharge Diet: Low fat/ Low Cholesterol, 2000 mg Sodium Diet Discharge Activity: Return to Normal Activity Return to work on:: 10/30/17 Home Medications: Medications to take at Discharge lisinopril 5 mg tablet 5 mg PO DAILY #90 tab 03/05/17 Hydrocodone/Acetaminophen [Hydrocodon-Acetaminophen 5-325] 1 tab PO 4X/DAY PRN PRN 10/24/17 Apixaban [Eliquis] 5 mg PO BID #60 tab 10/27/17 Dofetilide [Tikosyn] 250 mcg PO Q12 #60 cap 10/27/17 Metoprolol Tartrate [Lopressor (beta misty)] 25 mg PO BID #60 tab 10/27/17 Following Prescrptions Were Given to Patient: Apixaban [Eliquis] 5 mg PO BID #60 tab Dofetilide [Tikosyn] 250 mcg PO Q12 #60 cap Metoprolol Tartrate [Lopressor (beta misty)] 25 mg PO BID #60 tab Primary Care Physician: Eddie Combs MD [Primary Care Provider] - Please follow up with your Primary Care Physician in: 1-2 weeks Please Follow Up With: Joe Leahy MD When: 2 weeks Please Follow Up With: Eddie Combs MD When: 1-2 weeks Disposition: Home Minutes spent on discharge:: 35 Patient Condition:: Stable Medical Necessity - Tobacco Use Smoking Status: Never smoker Tobacco Use: Non-smoker Meaningful Use Info Meaningful Use Diagnoses (Choose all that apply): None applicable <Jamie Isidro E - Last Filed: 10/27/17 14:30> Discharge Date and Diagnosis - Secondary Discharge Diagnosis Chronic Problems (Last Reviewed 10/24/17 @ 15:28 by Yasir Álvarez DO) Paroxysmal atrial fibrillation (Chronic) Atrial fibrillation with RVR (Chronic) Cardiomyopathy (Chronic) Hospital Course and Treatment Summary of Care Provided: Hospitalist note: Discharge summary above reviewed and I agree with above discharge and treatment plan. Patient was admitted for palpitation, found to have atrial fibrillation with RVR. He did have history of paroxysmal A. fib in the past. He was treated with IV Cardizem drip, was continued on metoprolol and Eliquis for anticoagulation. His EKG revealed no acute ischemic changes. His troponin was negative. His routine blood work was unremarkable. Cardiology consulted and recommended start patient on Tikosyn. Patient was administered except for 3 days with close monitoring of his EKG. There was no significant prolongation of QTc interval after discussing treatment. His kidney function remains stable and normal. Symptoms improved. He remains oxygen and is heart rate and blood pressure remained stable. He underwent nuclear stress test that reported as negative without evidence of stress-induced myocardial ischemia. 2D echocardiogram revealed ejection fraction of 50% which is in the lower limit of normal and was diagnosed with nonischemic cardiomyopathy. There was no evidence of acute CHF. Patient discharged home in a stable medical condition, discharged on Tikosyn and metoprolol for rate control, discharged on Eliquis for anticoagulation, recommended follow-up with PCP in 1-2 weeks and follow-up with cardiology in 2 weeks. - Physical Exam General: Alert, Oriented x3, Cooperative, No apparent distress. HEENT: Atraumatic, PERRLA, EOMI. Neck: Supple, No JVD, Negative Carotid Bruits, Trachea Midline, Thyroid Normal. Lungs: Clear to auscultation, Normal air movement, No rhonchi, No wheeze, No rales. Cardiovascular: Regular rate, Regular Rhythm, Normal S1, Normal S2, PMI Normal. Abdomen: Bowel Sounds Present, Soft, Non Tender, Non-Distended, No Hepato-splenomegaly. Extremities: No clubbing, No cyanosis, No edema Skin: No rashes, No breakdown Neurological: Neuro grossly intact Vital Signs are stable. This note was generated with [employer] dictation software. It may contain incorrect words, spelling, and punctuation that were not noted in checking the note before signing. Minutes spent on discharge:: 32 Patient Condition:: Stable Meaningful Use Info Meaningful Use Diagnoses (Choose all that apply): None applicable Code Visit Inpatient E&M: 76464 Disch Hosp
--- NOTE | 2017-10-27 12:34 | DS.PCM_ITS ---
<Marco Antonio Pickering - Last Filed: 10/27/17 12:28> Discharge Date and Diagnosis Date of Admission: 10/24/17 Date of Discharge: 10/27/17 - Primary Discharge Diagnosis Paroxysmal Afib with RVR NonCAD related Cardiomyopathy Hx PE - Secondary Discharge Diagnosis Chronic Problems (Last Reviewed 10/24/17 @ 15:28 by Yasir Álvarez DO) Paroxysmal atrial fibrillation (Chronic) Atrial fibrillation with RVR (Chronic) Cardiomyopathy (Chronic) Hospital Course and Treatment Imaging Results: RAD/Chest 1 View (Portable) IMPRESSION: No acute cardiopulmonary disease. Stress test: Impression: 1. Rest and stress SPECT cardio light nuclear imaging demonstrate a small area of subtle diminished tracer uptake near the apical segments without significant change between rest and stress appearing compatible with physiologic apical thinning with no myocardial perfusion changes consider diagnostic for associated stress-induced myocardial ischemia or previous myocardial injury/ infarction. 2. The gated Cardiolite study reports an LVEF of 52 %. This note was generated with [employer] dictation software. It may contain incorrect words, spelling, and punctuation that were not noted in checking the note before signing. Echo: Interpretation Summary The study was technically difficult. Left ventricular systolic function is lower limits of normal. The estimated ejection fraction is 50 %. Borderline to mildly enlarged left atrium. Trivial mitral valve insufficiency. Trivial tricuspid valve insufficiency. Trivial pulmonic valve insufficiency. Unable to estimate RV systolic pressure/pulmonary artery pressure due to technically difficult study. Diastolic function: considered indeterminate. Consults: Yariw/Armond - cardiology Operations: None Procedures: 2-D Echocardiogram, Stress test Summary of Care Provided: Physical exam on day of discharge: General: Resting comfortably NAD Psych: A/Ox3 normal affect HEENT: PEARRLA AT NC Neck: Supple NT CV: RRR no m/t/r/g/h Resp: CTA Abd: [id number] Soft NT no guarding or rigidity Ext: DP2+= no edema Skin: W/D normal turgor Lymph/Heme: No active bleeding or adenopathy Neuro: CN2-12 intact Hospital course: The patient is a 41 year old M with a hx of A fib and non CAD mediated cardiomyopathy who presented to the ER with palpitations and was found to be in Afib with RVR. He was started on Cardizem and eliquis and admitted to the PCU with cardiology consult. He had some associated chest pain so he underwent stress testing which was negative for ischemia. He had a repeat echo that was unremarkable. His rate was controlled and he was converted to tikosyn therapy. He required cardiac monitoring with serial EKGs with his tikosyn dosing. He had no issues with the tikosyn with respect to his renal function, EKGs, QT intervals. He had no further palpitations. He was discharged on eliquis and tikosyn to home in stable condition. Please follow up with your PCP and frit mixer (Armond). This patient was seen by Marco Antonio Pickering PA-C under the supervision of Doctor Misa. [] Discharge Diet: Low fat/ Low Cholesterol, 2000 mg Sodium Diet Discharge Activity: Return to Normal Activity Return to work on:: 10/30/17 Home Medications: Medications to take at Discharge lisinopril 5 mg tablet 5 mg PO DAILY #90 tab 03/05/17 Hydrocodone/Acetaminophen [Hydrocodon-Acetaminophen 5-325] 1 tab PO 4X/DAY PRN PRN 10/24/17 Apixaban [Eliquis] 5 mg PO BID #60 tab 10/27/17 Dofetilide [Tikosyn] 250 mcg PO Q12 #60 cap 10/27/17 Metoprolol Tartrate [Lopressor (beta misty)] 25 mg PO BID #60 tab 10/27/17 Following Prescrptions Were Given to Patient: Apixaban [Eliquis] 5 mg PO BID #60 tab Dofetilide [Tikosyn] 250 mcg PO Q12 #60 cap Metoprolol Tartrate [Lopressor (beta misty)] 25 mg PO BID #60 tab Primary Care Physician: Eddie Combs MD [Primary Care Provider] - Please follow up with your Primary Care Physician in: 1-2 weeks Please Follow Up With: Joe Leahy MD When: 2 weeks Please Follow Up With: Eddie Combs MD When: 1-2 weeks Disposition: Home Minutes spent on discharge:: 35 Patient Condition:: Stable Medical Necessity - Tobacco Use Smoking Status: Never smoker Tobacco Use: Non-smoker Meaningful Use Info Meaningful Use Diagnoses (Choose all that apply): None applicable <Jamie Isidro E - Last Filed: 10/27/17 14:30> Discharge Date and Diagnosis - Secondary Discharge Diagnosis Chronic Problems (Last Reviewed 10/24/17 @ 15:28 by Yasir Álvarez DO) Paroxysmal atrial fibrillation (Chronic) Atrial fibrillation with RVR (Chronic) Cardiomyopathy (Chronic) Hospital Course and Treatment Summary of Care Provided: Hospitalist note: Discharge summary above reviewed and I agree with above discharge and treatment plan. Patient was admitted for palpitation, found to have atrial fibrillation with RVR. He did have history of paroxysmal A. fib in the past. He was treated with IV Cardizem drip, was continued on metoprolol and Eliquis for anticoagulation. His EKG revealed no acute ischemic changes. His troponin was negative. His routine blood work was unremarkable. Cardiology consulted and recommended start patient on Tikosyn. Patient was administered except for 3 days with close monitoring of his EKG. There was no significant prolongation of QTc interval after discussing treatment. His kidney function remains stable and normal. Symptoms improved. He remains oxygen and is heart rate and blood pressure remained stable. He underwent nuclear stress test that reported as negative without evidence of stress-induced myocardial ischemia. 2D echocardiogram revealed ejection fraction of 50% which is in the lower limit of normal and was diagnosed with nonischemic cardiomyopathy. There was no evidence of acute CHF. Patient discharged home in a stable medical condition, discharged on Tikosyn and metoprolol for rate control, discharged on Eliquis for anticoagulation, recommended follow-up with PCP in 1-2 weeks and follow-up with cardiology in 2 weeks. - Physical Exam General: Alert, Oriented x3, Cooperative, No apparent distress. HEENT: Atraumatic, PERRLA, EOMI. Neck: Supple, No JVD, Negative Carotid Bruits, Trachea Midline, Thyroid Normal. Lungs: Clear to auscultation, Normal air movement, No rhonchi, No wheeze, No rales. Cardiovascular: Regular rate, Regular Rhythm, Normal S1, Normal S2, PMI Normal. Abdomen: Bowel Sounds Present, Soft, Non Tender, Non-Distended, No Hepato- splenomegaly. Extremities: No clubbing, No cyanosis, No edema Skin: No rashes, No breakdown Neurological: Neuro grossly intact Vital Signs are stable. This note was generated with [employer] dictation software. It may contain incorrect words, spelling, and punctuation that were not noted in checking the note before signing. Minutes spent on discharge:: 32 Patient Condition:: Stable Meaningful Use Info Meaningful Use Diagnoses (Choose all that apply): None applicable Code Visit Inpatient E&M: 33407 Disch Hosp
--- NOTE | 2017-10-28 15:49 | CASEMGMT ---
RN CM Discharge F/U Phone Call LACE: 14 Strata: 4 Discharge date: 10/27/17 Call date: 10/28/17 Call time: 1549 Attempted to reach pt without success at this time, message left for pt to call this RN CM back. SStaten RN CM Admission dx: Afib RVR
== END 2017-10-27 12:55 | disposition home or self-care (01) | DRG 310 ==
LOC: ED 13:42 → PCU 15:34
PROVIDERS: Hospitalist; Internal Medicine Cardiovascular Disease; Physician Assistant; Emergency Provider Emergency Medicine; Family Provider Family Medicine; PCP Family Medicine; Visit Provider Hospitalist
DX: I48.0 Paroxysmal atrial fibrillation (principal); I42.0 Dilated cardiomyopathy; E87.6 Hypokalemia; R07.9 Chest pain, unspecified; Z79.01 Long term (current) use of anticoagulants; Z79.899 Other long term (current) drug therapy; Z86.711 Personal history of pulmonary embolism
CPT/HCPCS: 36415; 71045; 78452; 80048; 84443; 84484; 85025; 85610; 85730; 93005; 93017; 93306; 99283; A9500; J7030; A4216; J2785

== ENCOUNTER → 2018-05-26 17:01 | Outpatient (CLI) | payer OTHER, SELFPAY ==
[2018-05-26 15:59] VITALS: BMI 29.3
[2018-05-26 17:28] LABS: Absolute Lymphocyte Count 2.63 X10^3/ul (0.83-4.51); Absolute Neutrophil Count 6.2 X10^3/uL (2.0-7.7); Basophil# 0.03 X10^3/uL; Basophil% 0.3 % (0-1); Eosinophil# 0.16 X10^3/uL; Eosinophils% 1.6 % (0-5); Hematocrit 46.7 % (40-54); Hemoglobin 16.2 g/dl (13.0-16.5); Lymphocyte # 2.63 X10^3/ul (4.0); Lymphocyte % 26.9 % (19-41); Mean Corp Hgb Conc 34.7 g/gl (32-36); Mean Corpuscular Volume 89.5 fL (80-94); Mean Platelet Vol. 10.4 fl (6.2-12.0); Monocyte% 8.2 % (0-10); Neutrophil # 6.16 X10^3/uL (2.7-7.7); Neutrophil % 62.9 % (47-70); Platelet Count 238 K/mm3 (150-450); RBC Distribution Width CV 13.6 % (11.6-14.6); RBC Distribution Width SD 44.5 fl (35.1-43.9); Red Blood Count 5.22 M/mm3 (4.6-6.2); White Blood Count 9.8 K/mm3 (4.4-11.0)
[2018-05-26 17:30] LABS: POSITIVE COUNT NO; POSITIVE DIFFERENTIAL NO; POSITIVE MORPHOLOGY NO
[2018-05-26 17:59] LABS: Anion Gap 11 (5-15); BUN 11 mg/dL (7-18); BUN/Creat Ratio 11.2 RATIO (10-20); Calcium,Total 8.6 mg/dL (8.5-10.1); Chloride 107 mmol/L (98-107); Creatinine, Serum 0.99 mg/dL (0.70-1.30); EST Glomerular Filtration Rate 88 mL/min (>60); Est Glom Filt Rate - Afr Amer 106 mL/min (>60); Glucose 81 mg/dL (74-106); Potassium 3.8 mmol/L (3.5-5.1); Sodium Level 143 mmol/L (136-145)
== END ==
LOC: LAB 17:03
PROVIDERS: Family Provider Family Medicine; PCP Family Medicine; Referring Provider Internal Medicine Cardiovascular Disease; Visit Provider Internal Medicine Cardiovascular Disease
DX: I42.0 Dilated cardiomyopathy (principal)
CPT/HCPCS: 36415; 80048; 85025

== ENCOUNTER 2018-06-05 07:01 | Day surgery (SDC) | payer OTHER, SELFPAY ==
[2018-05-26 15:59] VITALS: BMI 29.3
--- NOTE | 2018-05-26 16:50 | RAD_ITS ---
STUDY: X-RAY CHEST REASON FOR EXAM: Male, 42 years old. Pre-op, heart catheterization. History of atrial fibrillation. TECHNIQUE: PA and lateral views of the chest. COMPARISON: October 24, 2017. FINDINGS: The lungs are clear and expanded. There is no demonstrated pleural abnormality. Normal size heart. Normal mediastinum and jr. Normal visualized pulmonary arteries. Normal visualized aortic arch and descending thoracic aorta. Normal visualized thoracic spine. Normal visualized ribs, clavicles, and shoulders. There is no demonstrated abnormality of the visualized soft tissue structures of the upper abdomen. RAD/Chest PA and Lateral IMPRESSION: No acute cardiopulmonary disease or interval change. Electronically Signed: Heri Corrigan DO at 23:54 EST Tel [phone], Service support ,
[2018-06-04 07:41] VITALS: BMI 29.3
--- NOTE | 2018-06-05 09:02 | CL.D_ITS ---
Patient Name: ADRIANA DANIELS Study Date: 06/05/2018 Performing: Joe Leahy MD Ht: 68.89 inches 175 cm : 1975 Wt: 198.42 lbs 90 kg Age: 42 Gender: male BSA: 2.06 PROCEDURE(S) PERFORMED [id number]/COR/LV CLINICAL PROFILE AND INDICATIONS Indications: Suspected CAD Heart Failure: None Stress/Imaging Stress/Image Study Performed: No CONCLUSIONS Normal coronary arteries Cardiomyopathy: Dilated RECOMMENDATIONS Medical therapy DESCRIPTION OF PROCEDURE The patient arrived to the procedure lab. The risks and benefits of the procedure as well as a full d escription of our services here and current unavailability of surgical backup were fully explained to the patient and/or their significant other prior to the catheterization. The Timeout was completed, verifying the correct patient and procedure. The patient's procedural site was prepped and draped in the usual fashion. Local anesthetic was given subcutaneously to right radial region with Lidocaine 2% . Using a modified Seldinger technique, arterial access was obtained via the right radial artery, a 6 Fr sheath was inserted. Left Coronary Artery selective angiography was performed in multiple views u sing a 5 Fr. 4.0 Holden catheter. Left Ventriculography was performed in GHOSH projection using a 5 Fr. Pigtail catheter. LV to AO pullback pressures were then recorded.The arterial sheath was pulled and a TR Band was applied for hemostasis CORONARY ANGIOGRAPHY DOMINANCE: Right Dominant LEFT HEART ASSESSMENT Left Ventricular Ejection Fraction: by LV Gram 45 % Global Hypokinesis - Mild Depressed Left Ventricular systolic function LEFT MAIN: Angiographically normal LEFT ANTERIOR DECENDING ARTERY: Angiographically normal CIRCUMFLEX ARTERY: Angiographically normal RIGHT CORONARY ARTERY: Angiographically normal COMPLICATIONS No Complications PROCEDURE MEDICATIONS Fentanyl 50 mcg IV Versed 1 mg IV Versed 1 mg IV Oxygen: 2 L/min via nasal cannula Heparin diluted in 23cc Heparinized saline. Patient given 5cc IA of this solution. 06/05/2018 08:02:30 Verapamil 2.5mg, Ntg 100mcgs, 2000 units of Heparin diluted in 23cc Heparinized saline. Patient give n 5cc IA of this solution. 06/05/2018 08:02:30 SUMMARY OF HEMODYNAMIC DATA Time AIR REST ECG 07:19:19 AO 103/67 (85) SA 08:06:30 LV 141/3, 20 08:23:55 LV 137/1, 14 08:24:01 LV 131/4, 20 08:24:57 LVp 134/1, 20 08:24:59 AOp 137/78 (103) 08:25:05 Signed By Joe Leahy MD On 06/05/2018 09:01:19 Joe Leahy MD
== END 2018-06-05 11:53 | disposition home or self-care (01) ==
PROVIDERS: Family Provider Family Medicine; PCP Family Medicine; Referring Provider Internal Medicine Cardiovascular Disease; Visit Provider Internal Medicine Cardiovascular Disease
DX: I42.0 Dilated cardiomyopathy (principal); I48.0 Paroxysmal atrial fibrillation; I27.82 Chronic pulmonary embolism; Z79.01 Long term (current) use of anticoagulants; Z79.899 Other long term (current) drug therapy
CPT/HCPCS: 71046; 93458; 99152; 99153; J7040; C1769; C1894; Q9967